=== PATIENT | male | born 1995 | race Caucasian/White ===

== ENCOUNTER 2023-05-18 13:03 | Outpatient (AMB) | payer OTHER, SELFPAY ==
[2023-05-18 13:12] VITALS: BP 110/78; PULSE 73; O2SAT 98; BMI 21.0
--- NOTE | 2023-05-18 13:12 | A.OFFPC_ITS ---
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 Past medical history significant for asthma in childhood. Patient states not required an inhaler in years. Patient states anytime he eats anything he has to run to bathroom with soft stools 1-2x daily. with occasional abdominal cramping. Denies abdominal pain Denies blood in stool, nausea, vomiting and constipation. Patient denies any chest pain, palpitations, shortness of breath and syncope. Eye exam: Patient has not had recent exam, recommended to get exam every couple of years. [facility] Medical History (Updated 05/18/23 @ 13:41 by PAULINE John) Asthma Family History (Updated 05/18/23 @ 13:32 by PAULINE John) Mother No problems noted. Father Diabetes Hypertension Social History (Updated 05/18/23 @ 13:33 by PAULINE John) Household Members: Family Housing: House Alcohol intake: never Patient Tobacco Use Status: Never used Tobacco e-Cigarette/Vaping Use: Never Used service: No Current occupational status: employed Current occupational exposures/hazards: No Cognitive needs: No Hearing needs: No Vision needs: No Questionnaire PHQ-9 Over the last 2 weeks, how often have you been bothered by any of the following problems? 1. Little interest or pleasure in doing things: not at all 2. Feeling down, depressed, or hopeless: not at all 3. Trouble falling or staying asleep, or sleeping too much: not at all 4. Feeling tired or having little energy: not at all 5. Poor appetite or overeating: not at all 6. Feeling bad about yourself - or that you are a failure or have let yourself or your family down: not at all 7. Trouble concentrating on things, such as reading the newspaper or watching television: not at all 8. Moving or speaking so slowly that other people could have noticed. Or the opposite - being so fidgety or restless that you have been moving around a lot more than usual: not at all 9. Thoughts that you would be better off or of hurting yourself in some way: not at all Total score: 0 Depression Screening Interpretation: Negative 70378 - PHQ-9 Billing: Yes Source: Developed by Drs. Hank Fountain, Kimberly Nunez, Alec soliman nd colleagues, with an educational marimar from [employer]. Thrive Questionnaire Date Thrive assessed: 05/18/23 I am a: Patient What is your living situation today?: I have a steady place to live Within the past 12 months, did the food you bought not last and you didn't have the money to get more?: Never true Within the past 12 months, did you worry whether your food would run out before you got money to buy more?: Never true Do you have trouble paying for medicines?: No Do you have trouble getting transportation to medical appointments?: No Do you have trouble paying your heating and electricity bill?: No Do you have trouble taking care of your child, family member or friend?: No Do you have trouble with day-to-day activities such as bathing, preparing meals, shopping, managing finances, etc.?: No Are you currently unemployed and looking for a job?: No Are you interested in more education?: No Please select the resources that you would like help with: None Currently or been in a relationship where the following occur: no concerns reported AUDIT C Alcohol Use Questionnaire (AUDIT-C) 1. How often do you have a drink containing alcohol?: Never 3. How often do you have six or more drinks on one occasion?: Never Total Score: 0 RAY-7 AMB Questionnaire RAY-7 Date RAY - 7 assessed: 05/18/23 Feeling nervous, anxious, or on edge: 0 = Not at all Not being able to stop or control worryin = Not at all Worrying too much about different things: 0 = Not at all Trouble relaxin = Not at all Being so restless that it is hard to sit still: 0 = Not at all Becoming easily annoyed or irritable: 0 = Not at all Feeling afraid as if something awful might happen: 0 = Not at all Total RAY-7 score (0-4 normal; 5-9 mild; 10-14 moderate; 15-21 severe): 0 Source: Developed by Drs. Hank Fountain, Kimberly Nunez, Alec Braun and colleagues, with an educational marimar from [employer]. RAY-7 Assessment Billing RAY-7 Assessment Tool: RAY-7 Assessment 95148 Review of Systems Const Denies chills, Denies fatigue, Denies fever(s) and Denies poor appetite Eyes Denies no additional complaints ENT Reports Normal hearing present Card Denies chest pain, Denies syncope, Denies rapid heart rate and Denies dyspnea Resp Denies cough and Denies dyspnea GI Denies change in stool character, Denies constipation, Denies diarrhea, Denies nausea and Denies vomiting Denies dysuria, Denies urinary frequency and Denies urinary urgency Neuro Reports Normal hearing present, Denies confusion and Denies syncope Psych Denies confusion Endo Denies fatigue Physical exam (Primary Care) Vital Signs: Last Vital Signs Pulse 73 05/18/23 13:12 BP 110/78 05/18/23 13:12 Pulse Ox 98 05/18/23 13:12 Oxygen Delivery Method Room Air 05/18/23 13:12 BMI result Body Mass Index 21.0 Tobacco/Smoking Status: Tobacco use Status Tobacco use date assessed 05/18/23 05/18/23 13:17 Patient Tobacco Use Status Never used Tobacco 05/18/23 13:33 e-Cigarette/Vaping Use Never Used 05/18/23 13:33 PHQ-9: PHQ-9 Score PHQ-9: Total score 0 05/18/23 13:36 Depression Screening Interpretation: Negative Thrive Assessment: Date of Thrive Assessment Date Thrive assessed 05/18/23 05/18/23 13:17 Currently or been in a relationship where the following occur: no concerns reported Const General: No confusion Orientation/consciousness: No confusion HENMT Head: Yes normocephalic and Yes atraumatic Ears: external ears normal and TM's normal bilaterally General nose exam: Normal external nose present and Normal nasal mucous membranes and turbinates present Face and sinus: Yes normal facial exam and Yes sinuses nontender Mouth: moist mucous membranes Throat: Yes tonsils normal Eyes Conjunctivae: conjunctivae normal Sclerae: sclerae normal Pupils: Equal, round and reactive pupils present and Pupils normal by confrontation EOM: EOMs intact bilaterally Direct Ophthalmoscopy: normal light reflex Neck Neck: Yes no lymphadenopathy and Yes supple Thyroid: Thyroid normal Chest Chest palpation & inspection: normal inspection of the chest Resp Effort & Inspection: normal respiratory effort Auscultation: clear to auscultation bilaterally, no crackles, no rhonchi and no wheezes Cardio Rate: regular rate Rhythm: regular rhythm Peripheral pulses: radial pulses present and dorsalis pedis present GI Inspection: Yes normal to inspection Palpation (GI): Soft to palpation, nontender and No hepatosplenomegaly present Auscultation: normoactive bowel sounds Skin General skin exam: no rashes or lesions noted Neuro General: No confusion Cranial nerves: Yes Equal, round and reactive pupils present and Yes Normal hearing present Cognition (Neuro): normal cognition Gait exam (Neuro): Normal gait present Motor exam (neuro): 5/5 motor strength present throughout Deep tendon reflexes (DTR's): Right brachioradialis reflex intensity grade: 2+, Left brachioradialis reflex intensity grade: 2+, Right patellar reflex intensity grade: 2+ and Left patellar reflex intensity grade: 2+ Extrem General: No edema Assessment and Plan Assessment & Plan (1) IBS (irritable bowel syndrome): Code(s): K58.9 - Irritable bowel syndrome without diarrhea Plan: Referral entered to GI for likely IBS. (2) Physical exam, annual: Code(s): Z00.00 - Encounter for general adult medical examination without abnormal findings Plan: Follow up in 1 year. Plan Follow up in 1 year or sooner if needed. Orders: Orders Comprehensive Met. Panel Today Z13.1 - Encounter for screening for diabetes mellitus TSH reflex Free T4 Today Z13.29 - Encounter for screening for other suspected endocrine disorder Cholesterol Today Z13.220 - Encounter for screening for lipoid disorders Complete Blood Count Auto Diff Today Z13.0 - Encounter for screening for diseases of the blood and blood-forming organs and certain disorders involving the immune mechanism Referrals Gastroenterology Referral K58.9 - Irritable bowel syndrome without diarrhea Coding Level of Care Code New Pt Prev Care 18-39yr(69546 Diagnoses IBS (irritable bowel syndrome) K58.9 Physical exam, annual Z00.00 Additional Codes RAY-7 Assessment Billing - RAY-7 Assessment Tool: RAY-7 Assessment 60897 ([id number])
== END 2023-05-18 13:45 | disposition home or self-care (01) ==
PROVIDERS: PCP Internal Medicine; Visit Provider Nurse Practitioner Family
DX: K58.9 Irritable bowel syndrome, unspecified (principal); Z00.00 Encounter for general adult medical examination without abnormal findings
CPT/HCPCS: 99385

== ENCOUNTER 2023-05-29 09:12 | Outpatient (REF) | payer OTHER, SELFPAY ==
[2023-05-29 10:23] LABS: Basophils Absolute Auto 0.1 X10*3/uL (0.0-0.2); Basophils Percent Auto 0.9 % (0-2); Eosinophils Absolute Auto 0.1 X10*3/uL (0.0-0.4); Eosinophils Percent Auto 1.7 % (0-4); Hematocrit 45.7 % (42.0-52.0); Hemoglobin 15.4 g/dl (14.0-18.0); Imm Gran Abs Auto 0.02 X10*3/uL (0.00-0.03); Imm Gran Pct Auto 0.3 % (0.0-0.4); MANUAL DIFF FLAG NO; Mean Corpuscular HGB Conc 33.7 g/dl (31.0-36.0); Mean Corpuscular Hemoglobin 29.4 pg (27.0-33.0); Mean Corpuscular Volume 87.2 fL (80.0-98.0); Mean Platelet Volume 9.9 fL (9.4-12.4); Monocytes Absolute Auto 0.5 X10*3/uL (0.1-1.2); Monocytes Percent Auto 8.3 % (2-11); Neutrophils Absolute Auto 3.2 x10*3/uL (2.0-8.3); Neutrophils Percent Auto 54.8 % (45-73); Platelet Count 240 X10*3/uL (160-400); Red Blood Count 5.24 X10*6/uL (4.60-5.80); Red Cell Distribution Width 11.8 % (11.0-16.0); White Blood Count 5.9 X10*3/uL (4.8-10.8)
[2023-05-29 11:13] LABS: Alanine Aminotransferase 14 U/L (0-40); Albumin Level 4.4 g/dL (3.5-5.0); Alkaline Phosphatase 83 U/L (39-117); Anion Gap 13 (12-20); Aspartate Amino Transferase 16 U/L (5-37); Bilirubin Total 0.7 mg/dL (0.0-1.0); Blood Urea Nitrogen 12 mg/dL (9-16); Calcium 9.3 mg/dL (8.4-10.2); Carbon Dioxide 26 mmol/L (22-29); Chloride 105 mmol/L (96-108); Cholesterol 168 mg/dL; Estimated Glomerular Filt Rate > 60; Glucose Random 90 mg/dL (60-115); Potassium 3.8 mmol/L (3.3-5.1); Sodium 140 mmol/L (135-145); Total Protein 7.1 g/dL (6.5-8.0)
[2023-05-29 11:28] LABS: TSH reflex Free T4 1.79 uIU/mL (0.32-4.0)
== END 2023-05-29 09:13 | disposition home or self-care (01) ==
LOC: HO.LAB 09:12
PROVIDERS: PCP Nurse Practitioner Family; Visit Provider Nurse Practitioner Family
DX: Z13.220 Encounter for screening for lipoid disorders (principal); Z13.0 Encounter for screening for diseases of the blood and blood-forming organs and certain disorders involving the immune mechanism; Z13.29 Encounter for screening for other suspected endocrine disorder
CPT/HCPCS: 36415; 80053; 82465; 84443; 85025

== ENCOUNTER 2023-07-17 07:56 | Outpatient (REF) | payer OTHER, SELFPAY ==
[2023-07-17 10:33] LABS: Lipase 20 U/L (8-78)
[2023-07-17 11:12] LABS: Folate 10.5 ng/mL (> or = 4.0); Vitamin B12 576 pg/mL (200-900)
[2023-07-19 14:09] LABS: Transglutaminase Ab IgG <1.0 U/mL; Transglutaminase IgA <1.0 U/mL
[2023-07-21 15:44] LABS: H Pylori Breath Test Negative (Negative)
[2023-07-21 16:24] LABS: Vitamin D 25-OH, D2 <4 ng/mL; Vitamin D 25-OH, D3 21 ng/mL; Vitamin D 25-OH, Total 21 ng/mL (30-100)
[2023-07-24 15:54] LABS: Pancreatic Elastase-1 >500 mcg/g
== END 2023-07-17 07:57 | disposition home or self-care (01) ==
LOC: HO.LAB 07:56
PROVIDERS: PCP Nurse Practitioner Family; Visit Provider Nurse Practitioner Family
DX: R10.13 Epigastric pain (principal); R10.9 Unspecified abdominal pain; E55.9 Vitamin D deficiency, unspecified; R19.7 Diarrhea, unspecified; K58.0 Irritable bowel syndrome with diarrhea
CPT/HCPCS: 36415; 82306; 82607; 82656; 82746; 83013; 83690; 86364

== ENCOUNTER 2023-07-17 07:56 | Outpatient (AMB) | payer OTHER, SELFPAY ==
--- NOTE | 2023-07-17 08:13 | A.OFFVIS_ITS ---
Intake Vital Signs 07/17/23 08:19 Height 5 ft 4 in Weight 122 lb BMI 20.9 BP 98/53 L Blood Pressure Location Lt brachial Position Sitting Pulse 70 Intake Visit Reasons: Irritable bowel syndrome Intake Note: Patient new consult for IBS. Patient cc: abdominal pain on and off, acid reflex come and go, poor appetite, and a lot of soft BM after eating. 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 Has not used inhaler for several years now. Patient was sent to us by his PCP for evaluation of his current symptoms. Patient reports to have frequent postprandial loose stools. Patient reports that no matter what he eats he will have loose stools and left upper quadrant discomfort. Patient reports that occasionally pain is in the left lower quadrant. Patient reports that frequently he has nausea, no vomiting. Patient denies melena, hematochezia, unintentional weight loss or ribbon like stools. Patient denies dyspepsia, dysphagia or odynophagia. Patient is not on any particular diet. He reports that no matter what he eats he will have a bowel movement. PCP ordered blood work the patient did in the beginning of May. Normal CBCs and normal liver enzymes. There was no leukocytosis. [facility] Medical History Asthma Family History Mother No problems noted. Father Diabetes Hypertension Social History Household Members: Family Housing: House Alcohol intake: never Patient Tobacco Use Status: Never used Tobacco e-Cigarette/Vaping Use: Never Used service: No Current occupational status: employed Current occupational exposures/hazards: No Cognitive needs: No Hearing needs: No Vision needs: No Review of Systems Const Denies weight gain and Denies weight loss ENT Reports no additional complaints, Denies dysphagia and Denies odynophagia Card Reports no additional complaints Resp Reports no additional complaints GI Reports abdominal pain (Epigastric), Denies belching, Denies melena, Denies bloating, Denies change in bowel habits, Denies dysphagia, Denies excessive flatus, Denies dyspepsia, Reports heartburn, Denies diarrhea, Reports loose stools, Reports nausea, Denies odynophagia and Denies vomiting Reports no additional complaints Musc Reports no additional complaints Neuro Reports no additional complaints Psych Reports no additional complaints Endo Reports no additional complaints Physical Exam Vital Signs: Last Vital Signs Pulse 70 07/17/23 08:19 BP 98/53 L 07/17/23 08:19 BMI result Body Mass Index 20.9 Const General: healthy appearing, no acute distress and well developed Nutritional Appearance: well nourished Orientation/consciousness: patient oriented x3 HEENT Head: Yes normal to inspection, Yes normocephalic and Yes atraumatic Face and sinus: Yes normal facial exam Mouth: Normal oral and palatal mucosa present Throat: Yes posterior oropharynx normal, Yes tonsils normal and Yes uvula midline Eyes General: appearance normal, both eyes and all related structures Neck Neck: Yes normal visual inspection, Yes full ROM and Yes trachea midline Thyroid: Thyroid normal Resp Effort & Inspection: normal respiratory effort, able to speak in complete se ntences, no tracheal deviation and symmetric chest movement Auscultation: clear to auscultation bilaterally Cardio Rate: regular rate Heart sounds: S1 normal heart sound present and S2 normal heart sound present GI Inspection: Yes normal to inspection and No distended Palpation (GI): Soft to palpation, not firm, nontender and No hepatosplenomegaly present Auscultation: normal bowel sounds General: Yes no CVA tenderness Back/Spine/Pelvis Back: no CVA tenderness Skin General skin exam: elasticity normal, turgor normal and dry skin Neuro General: patient oriented x3 Psych Appearance: grossly normal Mental Status: mental status grossly normal Speech and movement: Normal speech and movement present Assessment & Plan Assessment & Plan (1) IBS (irritable bowel syndrome): Code(s): K58.9 - Irritable bowel syndrome without diarrhea Qualifiers: Irritable bowel syndrome type: with diarrhea Qualified Code(s): K58.0 - Irritable bowel syndrome with diarrhea Plan: Postprandial loose stools. Discussed with patient avoiding dietary triggers. The FODMAP diet discussed with patient. Will send patient to check for pancreatic insufficiency, celiac, check vitamin B12, folate, vitamin-D level. (2) Postprandial epigastric pain: Code(s): R10.13 - Epigastric pain Plan: Postprandial epigastric pain with almost all the food that he eats. Will check for H pylori and treat empirically if positive. Will start patient on low-dose pantoprazole. Discussed with patient avoiding dietary triggers and late night snacking. Staying upright for minimal 3 hours after meals discussed with patient. I will see him in 5 weeks, sooner on as needed basis. Patient is agreeable to this plan and verbalizes understanding of instructions. He was given the opportunity to ask questions and all questions answered. Thank you for allowing me to participate in his care Orders: Orders Pancreatic Elastase-1 Today R10.9 - Unspecified abdominal pain Transglutaminase IgA Today R10.9 - Unspecified abdominal pain Lipase Today R10.9 - Unspecified abdominal pain Vitamin D 25-OH (D2 and D3) Today E55.9 - Vitamin D deficiency, unspecified Vitamin B12 and Folate Today R19.7 - Diarrhea, unspecified Transglutaminase Ab IgG Today R10.9 - Unspecified abdominal pain H Pylori Breath Test Today Medications: New pantoprazole 20 mg PO DAILY 30 tabs 1RF Coding Level of Care Code New Pt Level 3 (32270) Diagnoses Irritable bowel syndrome with diarrhea K58.0 Irritable bowel syndrome type: with diarrhea Postprandial epigastric pain R10.13 Time Spent (min) 40 Comment 30 minutes spent with patient and additional 10 minutes spent reviewing his records
[2023-07-17 08:19] VITALS: BP 98/53; PULSE 70; BMI 20.9
== END 2023-07-17 08:54 | disposition home or self-care (01) ==
PROVIDERS: PCP Family Medicine; Visit Provider Nurse Practitioner Family
DX: K58.0 Irritable bowel syndrome with diarrhea (principal); R10.13 Epigastric pain
CPT/HCPCS: 99203

== ENCOUNTER 2023-08-22 08:07 | Outpatient (AMB) | payer OTHER, SELFPAY ==
--- NOTE | 2023-08-22 08:13 | A.OFFVIS_ITS ---
Intake Vital Signs 08/22/23 08:14 Height 5 ft 4 in Weight 123 lb BMI 21.1 BP 104/55 L Blood Pressure Location Lt brachial Position Sitting Pulse 81 Intake Visit Reasons: 5 week follow up Intake Note: Patient 5 weeks follow up H pylori, lab and stool results. 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 Discussed with patient avoiding dietary triggers. The FODMAP diet discussed with patient. Will send patient to check for pancreatic insufficiency, celiac, check vitamin B12, folate, vitamin-D level. Postprandial epigastric pain Postprandial epigastric pain with almost all the food that he eats. Will check for H pylori and treat empirically if positive. Will start patient on low-dose pantoprazole. Discussed with patient avoiding dietary triggers and late night snacking. Staying upright for minimal 3 hours after meals discussed with patient. I will see him in 5 weeks, sooner on as needed basis. Patient is agree able to this plan and verbalizes understanding of instructions. He was given the opportunity to ask questions and all questions answered. ? Thank you for allowing me to participate in his care Plan Orders Orders Pancreatic Elastase-1 Today R10.9 Transglutaminase IgA Today R10.9 Lipase Today R10.9 Vitamin D 25-OH (D2 and D3) Today E55.9 Vitamin B12 and Folate Today R19.7 Transglutaminase Ab IgG Today R10.9 H Pylori Breath Test Today Medications New pantoprazole 20 mg PO DAILY 30 tabs 1RF TODAY'S VISIT: Patient is here today for follow-up and to discuss lab results. Patient reports that since he started taking pantoprazole he has been feeling better. His symptoms of acid reflux are suppressed for the most part it depending on what he eats he might have postprandial abdominal bloating and cramping. All the labs discussed with patient. Patient had negative H pylori, we ruled out pancreatic insufficiency. Patient had normal vitamin-D 3, vitamin B12 and folate levels. Patient reports that he is moving his bowels well without any issues. Denies any melena, hematochezia, unintentional weight loss or ribbon like stools. Patient denies any other GI concerning symptoms. [facility] Medical History Asthma Family History Mother No problems noted. Father Diabetes Hypertension Social History Household Members: Family Housing: House Alcohol intake: never Patient Tobacco Use Status: Never used Tobacco e-Cigarette/Vaping Use: Never Used service: No Current occupational status: employed Current occupational exposures/hazards: No Cognitive needs: No Hearing needs: No Vision needs: No Review of Systems Const Denies weight gain and Denies weight loss ENT Reports no additional complaints, Denies dysphagia and Denies odynophagia Card Reports no additional complaints Resp Reports no additional complaints GI Reports abdominal pain (abdominal cramping), Denies belching, Denies melena, Denies bloating, Denies change in bowel habits, Denies dysphagia, Denies exc essive flatus, Denies dyspepsia, Denies heartburn, Denies diarrhea, Denies loose stools, Denies nausea, Denies odynophagia and Denies vomiting Reports no additional complaints Musc Reports no additional complaints Neuro Reports no additional complaints Psych Reports no additional complaints Endo Reports no additional complaints Physical Exam Vital Signs: Last Vital Signs Pulse 81 08/22/23 08:14 BP 104/55 L 08/22/23 08:14 BMI result Body Mass Index 21.1 Const General: healthy appearing, no acute distress and well developed Nutritional Appearance: well nourished Orientation/consciousness: patient oriented x3 HEENT Head: Yes normal to inspection, Yes normocephalic and Yes atraumatic Face and sinus: Yes normal facial exam Mouth: Normal oral and palatal mucosa present Throat: Yes posterior oropharynx normal, Yes tonsils normal and Yes uvula midline Eyes General: appearance normal, both eyes and all related structures Neck Neck: Yes normal visual inspection, Yes full ROM and Yes trachea midline Thyroid: Thyroid normal Resp Effort & Inspection: normal respiratory effort, able to speak in complete sentences, no tracheal deviation and symmetric chest movement Auscultation: clear to auscultation bilaterally Cardio Rate: regular rate Heart sounds: S1 normal heart sound present and S2 normal heart sound present GI Inspection: Yes normal to inspection and No distended Palpation (GI): Soft to palpation, not firm, nontender and No hepatosplenomegaly present Auscultation: normal bowel sounds General: Yes no CVA tenderness Back/Spine/Pelvis Back: no CVA tenderness Skin General skin exam: elasticity normal, turgor normal and dry skin Neuro General: patient oriented x3 Psych Appearance: grossly normal Mental Status: mental status grossly normal Affect: normal affect Results Reviewed Results Reviewed: Laboratory Tests 07/17/23 07/17/23 07/17/23 08:45 09:24 09:40 Lipase 20 Vitamin B12 576 25-OH Vitamin D Total 21 L Folate 10.5 Stool Pancreat Elastase >500 Tiss Transglutamin IgG <1.0 Tiss Transglutamin IgA <1.0 H. pylori Breath Test Negative Assessment & Plan Assessment & Plan (1) IBS (irritable bowel syndrome): Code(s): K58.9 - Irritable bowel syndrome without diarrhea Qualifiers: Irritable bowel syndrome type: with diarrhea Qualified Code(s): K58.0 - Irritable bowel syndrome with diarrhea (2) Postprandial epigastric pain: Code(s): R10.13 - Epigastric pain Plan: Continue pantoprazole every morning half an hour before breakfast. Continue vitamin-D. Discussed with patient avoiding dietary triggers in late night snacking. Low FODMAP diet discussed with patient. Staying upright for minimum 3 hours after meals discussed with patient. I will see him in 6 months, sooner on a regular basis. Patient is agreeable to this plan and verbalizes understanding of instructions. He was given the opportunity to ask questions and all questions answered. Thank you for allowing me to participate in his care Medications: Refilled cholecalciferol (vitamin D3) 50 mcg PO DAILY 90 caps 3RF R79.89 - Other specified abnormal findings of blood chemistry pantoprazole 20 mg PO DAILY 90 tabs 3RF Coding Level of Care Code Est Pt Level 3 (12028) Diagnoses Irritable bowel syndrome with diarrhea K58.0 Irritable bowel syndrome type: with diarrhea Postprandial epigastric pain R10.13 Time Spent (min) 25 Comment 15 minute spent in patient and additional 10 minutes spent reviewing his records
[2023-08-22 08:14] VITALS: BP 104/55; PULSE 81; BMI 21.1
== END 2023-08-22 08:33 | disposition home or self-care (01) ==
PROVIDERS: PCP Family Medicine; Visit Provider Nurse Practitioner Family
DX: K58.0 Irritable bowel syndrome with diarrhea (principal); R10.13 Epigastric pain
CPT/HCPCS: 99213

== ENCOUNTER → 2023-08-22 08:07 | Outpatient (BNVA) | payer OTHER, SELFPAY | PROVIDERS: PCP Family Medicine; Visit Provider Nurse Practitioner Family | DX: K58.0 Irritable bowel syndrome with diarrhea (principal); R10.13 Epigastric pain | CPT/HCPCS: 99212 ==

== ENCOUNTER 2023-09-12 18:59 | Emergency (ER) | payer OTHER, SELFPAY ==
--- NOTE | ~2023-09-12 | CT_ITS ---
EXAMINATION: CT head/brain wo IV con CLINICAL INFORMATION: Reason for Exam Vertigo COMPARISON: None. TECHNIQUE: Contiguous axial imaging was performed from the skull base to vertex without intravenous contrast. Sagittal and coronal reformatted images were obtained. This CT examination was performed using dose optimization techniques as appropriate, variously including the following: * Automated exposure control * Adjustment of mA and/or kV according to patient size (this includes techniques or standardized protocols for targeted exams where dose is matched to indication/reason for exam; i.e. extremities or head) Use of iterative reconstruction technique DLP: 728 mGy-cm FINDINGS: No acute osseous or soft tissue abnormality. The mastoid air cells and visualized portions of the paranasal sinuses are well aerated. There is no evidence of acute intracranial hemorrhage or territorial infarction. No abnormal mass effect or midline shift is seen. Cage to white matter differentiation is well preserved. No extra-axial fluid collections are identified. No hydrocephalus. No significant volume loss. There is no abnormal attenuation within the brain parenchyma. CT/CT head/brain wo IV con IMPRESSION: No acute intracranial abnormality including hemorrhage, mass effect, hydrocephalus, or acute territorial edematous infarction.
--- NOTE | 2023-09-12 19:21 | ED_ITS ---
HPI - General Adult General Stated complaint: dizziness, nausea, vomiting Related Data Previous Rx's Medication Instructions Recorded cholecalciferol (vitamin D3) 50 50 mcg PO DAILY #90 caps 08/22/23 mcg (2,000 unit) capsule pantoprazole 20 mg tablet,delayed 20 mg PO DAILY #90 tabs 08/22/23 release Allergies Allergy/AdvReac Type Severity Reaction Status Date / Time No Known Allergies Allergy Verified 08/22/23 08:13 [No Known Allergies*] [facility] Past Medical History Medical History Asthma Family History Family History Mother No problems noted. Father Diabetes Hypertension Social History Household Members: Family Housing: House Alcohol intake: never Patient Tobacco Use Status: Never used Tobacco e-Cigarette/Vaping Use: Never Used service: No Current occupational status: employed Current occupational exposures/hazards: No Cognitive needs: No Hearing needs: No Vision needs: No Course Course Course Narrative: This is an RME: Additional HPI, ROS, PE not included below will be deferred to primary provider. This is a 28-year-old male, with a history of irritable bowel syndrome, presenting to the emergency department for evaluation of lightheadedness, nausea, and dizziness since today. +Chills, +nausea, +vomiting, no fevers. Endorsing some abdominal pain. Had left over pizza for lunch this afternoon. Pale. Abdomen is soft. No neurologic focal deficits on exam. Plan: Labs, urine, COVID flu RSV, urine Discharge Plan Discharge Prescriptions: No Action cholecalciferol (vitamin D3) 50 mcg (2,000 unit) capsule 50 mcg PO DAILY Qty: 90 3RF pantoprazole 20 mg tablet,delayed release (DR/EC) 20 mg PO DAILY Qty: 90 3RF
[2023-09-12 19:24] VITALS: BP 120/74; PULSE 101; RESP 18; TEMP 36.2; O2SAT 98; BMI 21.1
[2023-09-12 20:44] LABS: MANUAL DIFF FLAG NO
[2023-09-12 20:46] LABS: Basophils Absolute Auto 0.1 X10*3/uL (0.0-0.2); Basophils Percent Auto 0.5 % (0-2); Eosinophils Absolute Auto 0.1 X10*3/uL (0.0-0.4); Eosinophils Percent Auto 0.4 % (0-4); Hematocrit 47.2 % (42.0-52.0); Imm Gran Abs Auto 0.08 X10*3/uL (0.00-0.03); Imm Gran Pct Auto 0.5 % (0.0-0.4); Lymphocytes Absolute Auto 1.5 X10*3/uL (1.2-4.9); Mean Corpuscular HGB Conc 33.9 g/dl (31.0-36.0); Mean Corpuscular Hemoglobin 28.4 pg (27.0-33.0); Mean Corpuscular Volume 83.7 fL (80.0-98.0); Mean Platelet Volume 9.4 fL (9.4-12.4); Monocytes Absolute Auto 0.9 X10*3/uL (0.1-1.2); Monocytes Percent Auto 5.8 % (2-11); Neutrophils Absolute Auto 12.5 x10*3/uL (2.0-8.3); Neutrophils Percent Auto 82.8 % (45-73); Platelet Count 272 X10*3/uL (160-400); Red Blood Count 5.64 X10*6/uL (4.60-5.80); Red Cell Distribution Width 11.9 % (11.0-16.0); White Blood Count 15.1 X10*3/uL (4.8-10.8)
[2023-09-12 20:52] VITALS: BP 137/50; PULSE 78; O2SAT 100
[2023-09-12 20:59] LABS: Alanine Aminotransferase 31 U/L (0-40); Albumin Level 4.7 g/dL (3.5-5.0); Alkaline Phosphatase 94 U/L (39-117); Anion Gap 11 (12-20); Aspartate Amino Transferase 19 U/L (5-37); Bilirubin Direct 0.2 mg/dL (0.0-0.5); Bilirubin Total 0.4 mg/dL (0.0-1.0); Blood Urea Nitrogen 9 mg/dL (9-16); Carbon Dioxide 29 mmol/L (22-29); Chloride 104 mmol/L (96-108); Creatinine Clr Calc Pharmacy 115.2; Estimated Glomerular Filt Rate > 60; Glucose Random 118 mg/dL (60-115); Lipase 21 U/L (8-78); Potassium 4.8 mmol/L (3.3-5.1); Sodium 139 mmol/L (135-145); Total Protein 7.7 g/dL (6.5-8.0)
[2023-09-12 21:22] LABS: Influenza A PCR NEGATIVE (Negative); Influenza B PCR NEGATIVE (Negative); Resp Syncy Virus RNA Qual PCR NEGATIVE (Negative); SARS COV2 PCR INHOUSE NEGATIVE (Negative)
[2023-09-12 22:54] LABS: Appearance Urine Turbid; Color Urine Yellow; Glucose Urine UA Negative (Negative); Leukocyte Esterase Urine Negative (Negative); Nitrite Urine Negative (Negative); PH 8.5 (5.0-9.0); Specific Gravity - Urine 1.015 (1.005-1.025); Urine Blood Negative (Negative); Urine Ketones Negative (Negative); Urine Protein Negative (Neg-Trace)
[2023-09-12 23:33] VITALS: BP 109/62; PULSE 72; RESP 20; TEMP 36.6; O2SAT 98
--- NOTE | 2023-09-13 00:39 | ED.GENADULT ---
HPI - General Adult General Chief complaint: Abdominal Pain Stated complaint: dizziness, nausea, vomiting Time Seen by Provider: 09/12/23 23:28 History of Present Illness HPI narrative: Patient is a 28-year-old male presents today with having sudden onset of spinning sensation it is extreme it is worse with turning his head. Patient never had something similar in the past. No coughing or congestion or upper respiratory symptoms. No focal weakness. Symptom improved with sitting still. He is from home. Denies any recreational drug use. Related Data Previous Rx's Medication Instructions Recorded cholecalciferol (vitamin D3) 50 50 mcg PO DAILY #90 caps 08/22/23 mcg (2,000 unit) capsule pantoprazole 20 mg tablet,delayed 20 mg PO DAILY #90 tabs 08/22/23 release meclizine 25 mg chewable tablet 25 mg PO TID PRN dizziness #10 tabs 09/13/23 (Antivert) Allergies Allergy/AdvReac Type Severity Reaction Status Date / Time No Known Allergies Allergy Verified 08/22/23 08:13 [No Known Allergies*] Review of Systems Review of Systems: Positive spinning sensation positive generalized malaise Yes all other systems are reviewed and are negative [facility] Past Medical History Medical History Asthma Family History Family History Mother No problems noted. Father Diabetes Hypertension Social History Household Members: Family Housing: House Alcohol intake: never Patient Tobacco Use Status: Never used Tobacco e-Cigarette/Vaping Use: Never Used Advance Directives: No Advance Directives Information Provided: No service: No Current occupational status: employed Current occupational exposures/hazards: No Cognitive needs: No Hearing needs: No Vision needs: No Physical Exam ED Vital Signs: Vital Signs - 24 hr 09/12/23 19:24 09/12/23 20:52 09/12/23 23:33 Temperature 97.2 F 97.9 F Pulse Rate 101 H 78 72 Respiratory Rate 18 20 Blood Pressure 120/74 137/50 L 109/62 Pulse Oximetry 98 100 98 Oxygen Delivery Method Room Air Room Air Room Air BMI result Body Mass Index 21.1 Appearance: Alert. Oriented X3. No acute distress. Eyes: Pupils equal, round and reactive to light. ENT: Pharynx normal. Neck: Normal inspection. Neck supple. No lymph nodes noted. No crepitus CVS: Normal heart rate and rhythm. Pulses normal. Normal S1 and S2 Respiratory: No respiratory distress. Breath sounds normal. No Wheezing. No rales Abdomen: Soft and nontender. No rigidity. No distention. good BS x4 Skin: Skin warm and dry. Normal skin color. Normal skin turgor. Extremities: No lower extremity edema. Neurovascular intact to all extremities. No Lacerations. No Rash Neuro: Oriented X 3. No motor deficit. No sensory deficit. Moving all extermities. No slurred speech. Positive Alyssa Hallpike maneuver when turning patient's head to the right patient's symptoms reproduced NIH Stroke Scale Time: 00:41 Level of Consciousness: Alert Level of Consciousness Questions: Answers both questions correctly Level of Consciousness Commands: Performs both tasks correctly Best Gaze: Normal Visual: No visual loss Facial Palsy: Normal Motor Arm (Right): No drift Motor Arm (Left): No drift Motor Leg (Right): No drift Motor Leg (Left): No drift Limb Ataxia: Absent Sensory: Normal Best Language: No aphasia Dysarthia: Normal Extinction and Inattention: No abnormality Score: 0 Medications Administered Discontinued Medications Generic Name Dose Route Start Last Admin Trade Name Freq PRN Reason Stop Dose Admin Sodium Chloride 1,000 mls @ 999 mls/hr 09/13/23 00:45 09/13/23 01:19 Ns IV 09/13/23 01:45 999 mls/hr .Q1H1M CASSIE Administration Meclizine HCl 25 mg 09/13/23 00:38 09/13/23 01:19 Meclizine Hcl 25 Mg Tablet PO 09/13/23 00:39 25 mg ONCE ONE Administration Medical Decision Making Medical Decision Making [facility] Narrative: Patient well appearing no acute distress. Neurologically intact. Symptoms consistent with having peripheral vertigo. Very abrupt in onset reproduced with turning his head. Will give a dose of Antivert. IV fluids ordered. Patient's COVID test was negative. Flu RSV negative. Electrolytes unremarkable. CT scan of the head was grossly negative for any acute evidence of bleeding by my interpretation. I reviewed radiology's reading of the CT scan. Patient neurologically intact. Symptom improved after dose of Antivert. After dose of IV fluids. Will discharge patient home. Close follow-up on outpatient basis. Likely has peripheral vertigo. Differential Diagnosis Differential Diagnoses: The differential diagnosis associated with the presentation includes Peripheral vertigo, flu, RSV Admission/Observation Consideration of admission/observation: Escalation of care including admission/observation considered No need for admission as patient's symptoms improving Lab Data MDM Lab Attestation statement: I reviewed the patient's lab results. 09/12/23 20:38 09/12/23 20:38 Labs: Lab Results 09/12/23 09/12/23 Range/Units 20:38 22:45 WBC 15.1 H (4.8-10.8) X10*3/uL RBC 5.64 (4.60-5.80) X10*6/uL Hgb 16.0 (14.0-18.0) g/dl Hct 47.2 (42.0-52.0) % MCV 83.7 (80.0-98.0) fL MCH 28.4 (27.0-33.0) pg MCHC 33.9 (31.0-36.0) g/dl RDW 11.9 (11.0-16.0) % Plt Count 272 (160-400) X10*3/uL MPV 9.4 (9.4-12.4) fL Immature Gran % (Auto) 0.5 H (0.0-0.4) % Neut % (Auto) 82.8 H (45-73) % Lymph % (Auto) 10.0 L (20-40) % [place] % (Auto) 5.8 (2-11) % Eos % (Auto) 0.4 (0-4) % Baso % (Auto) 0.5 (0-2) % Lymph # (Auto) 1.5 (1.2-4.9) X10*3/uL [place] # (Auto) 0.9 (0.1-1.2) X10*3/uL Eos # (Auto) 0.1 (0.0-0.4) X10*3/uL Baso # (Auto) 0.1 (0.0-0.2) X10*3/uL Abs Immat Gran (auto) 0.08 H (0.00-0.03) X10*3/uL Absolute Neuts (auto) 12.5 H (2.0-8.3) x10*3/uL Absolute Nucleated RBC 0.000 (0.0-0.012) X10*3/uL Nucleated RBC % (auto) 0.0 (0.0-0.2) /100WBC Sodium 139 (135-145) mmol/L Potassium 4.8 D (3.3-5.1) mmol/L Chloride 104 (96-108) mmol/L Carbon Dioxide 29 (22-29) mmol/L Anion Gap 11 L (12-20) BUN 9 (9-16) mg/dL Creatinine 0.76 (0.5-1.4) mg/dL Estim Creat Clear Calc 115.2 Estimated GFR > 60 Random Glucose 118 H (60-115) mg/dL Calcium 10.0 D (8.4-10.2) mg/dL Total Bilirubin 0.4 (0.0-1.0) mg/dL Direct Bilirubin 0.2 (0.0-0.5) mg/dL AST 19 (5-37) U/L ALT 31 (0-40) U/L Alkaline Phosphatase 94 (39-117) U/L Total Protein 7.7 (6.5-8.0) g/dL Albumin 4.7 (3.5-5.0) g/dL Lipase 21 (8-78) U/L Urine Color Yellow Urine Appearance Turbid Urine pH 8.5 (5.0-9.0) Ur Specific [place] 1.015 (1.005-1.025) Urine Protein Negative (Neg-Trace) mg/dL Urine Glucose (UA) Negative (Negative) mg/dL Urine Ketones Negative (Negative) mg/dL Urine Blood Negative (Negative) Urine Nitrite Negative (Negative) Ur Leukocyte Esterase Negative (Negative) Influenza Type A (PCR) NEGATIVE (Negative) Influenza Type B (PCR) NEGATIVE (Negative) RSV RNA Qual (PCR) NEGATIVE (Negative) SARS-CoV-2 RNA (RT-PCR) NEGATIVE (Negative) Independent Interpretation I performed an independent interpretation of an: CT Scan (CT head grossly negative for any acute evidence of bleeding) Radiology Impression Discussion of test interpretation with radiology: I have reviewed the radiologist's reading. Prescription Management I considered prescription management with: Pain Medication, Antiviral and Antibiotic Discharge Plan Discharge Clinical Impression: Vertigo Patient Disposition: Home, Self-Care Instructions: Vertigo (DC) Prescriptions: [facility]Antivert] 25 mg tablet,chewable 25 mg PO TID PRN (Reason: dizziness) Qty: 10 0RF No Action cholecalciferol (vitamin D3) 50 mcg (2,000 unit) capsule 50 mcg PO DAILY Qty: 90 3RF pantoprazole 20 mg tablet,delayed release (DR/EC) 20 mg PO DAILY Qty: 90 3RF Referrals: Physician,Unknown J [Primary Care Provider] - 09/15/23
[2023-09-13] MEDS: Meclizine HCl 25 MG TABLET PO (01:19)
[2023-09-13] MEDS: 0.9 % Sodium Chloride 1,000 ML 999 ML IV (01:19)
[2023-09-13 02:00] VITALS: BP 106/59; PULSE 68; RESP 18; TEMP 36.7; O2SAT 98
--- NOTE | 2023-09-13 02:00 | PC.NURSE ---
Iv placed, pt medicated per mar, pt resting in bed with no sign of distress.
--- NOTE | 2023-09-13 02:55 | PC.NURSE ---
pt a&o, sleeping. no longer vomiting.
--- NOTE | 2023-09-13 04:11 | PC.NURSE ---
pt sleeping in bed, no n/v reviewed discharge instruction with pt, pt verbalized understanding.
== END 2023-09-13 04:17 | disposition home or self-care (01) ==
PROVIDERS: Physician Assistant Medical; Emergency Provider Emergency Medicine Emergency Medical Services
DX: R11.2 Nausea with vomiting, unspecified (principal); R42 Dizziness and giddiness; Z20.822 Contact with and (suspected) exposure to COVID-19; Z20.828 Contact with and (suspected) exposure to other viral communicable diseases; Z79.899 Other long term (current) drug therapy
CPT/HCPCS: 0241U; 36415; 70450; 80048; 80076; 81003; 83690; 85025; 96360; 96361; 99283; 99284

== ENCOUNTER 2024-02-20 07:54 | Outpatient (AMB) | payer OTHER, SELFPAY ==
--- NOTE | 2024-02-20 08:06 | A.OFFVIS_ITS ---
Vital Signs 02/20/24 08:08 Height 5 ft 4 in Weight 131 lb BMI 22.5 BP 106/54 L Blood Pressure Location Lt brachial Position Sitting Intake Visit Reasons: 6 month follow up IBS Intake Note: Patient follow up for IBS Patient cc: GERD on and off, abdominal pain come and go, and some diarrhea on and off. 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 Continue vitamin-D. Discussed with patient avoiding dietary triggers in late night snacking. Low FODMAP diet discussed with patient. Staying upright for minimum 3 hours after meals discussed with patient. I will see him in 6 months, sooner on a regular basis. Patient is agreeable to this plan and verbalizes understanding of instructions. He was given the opportunity to ask questions and all questions answered. ? Thank you for allowing me to participate in his care Plan Medications Refilled cholecalciferol (vitamin D3) 50 mcg PO DAILY 90 caps 3RF R79.89 pantoprazole 20 mg PO DAILY 90 tabs 3RF TODAY'S VISIT: Patient is here today for follow-up. Patient reports that he is taking ramos toprazole every other day as he feels like it is making him constipated. Patient continues to have epigastric burning postprandially. Reports acid reflux and sometimes dyspepsia without dysphagia or odynophagia. Patient is not eating anything spicy. Avoids coffee. Occasionally will eat late at night. Patient does admit to have postprandial loose stools and sometimes loose stools even before he eats. On and frequent stools and then constipation. Patient is not on any particular diet. Tries to avoid fast food. Denies any nausea or vomiting. Reports left upper and left lower quadrant discomfort/cramping. Patient reports to be feeling bloated and gassy at times. Denies melena, hematochezia, unintentional weight loss or ribbon like stools. [facility] Medical History Asthma Family History Mother No problems noted. Father Diabetes Hypertension Social History Household Members: Family Housing: House Alcohol intake: never Patient Tobacco Use Status: Never used Tobacco e-Cigarette/Vaping Use: Never Used service: No Current occupational status: employed Current occupational exposures/hazards: No Cognitive needs: No Hearing needs: No Vision needs: No Review of Systems Const Denies weight gain and Denies weight loss ENT Reports no additional complaints, Denies dysphagia and Denies odynophagia Card Reports no additional complaints Resp Reports no additional complaints GI Reports abdominal pain (Epigastric, LLQ, LUQ), Denies belching, Denies melena, Reports bloating, Reports constipation, Denies dysphagia, Denies excessive flatus, Reports dyspepsia, Reports heartburn, Denies diarrhea, Reports loose stools, Denies nausea, Denies odynophagia and Denies vomiting Reports no additional complaints Musc Reports no additional complaints Neuro Reports no additional complaints Psych Reports no additional complaints Endo Reports no additional complaints Physical Exam Vital Signs: Last Vital Signs BP 106/54 L 02/20/24 08:08 BMI result Body Mass Index 22.5 Const General: healthy appearing, no acute distress and well developed Nutritional Appearance: well nourished Orientation/consciousness: patient oriented x3 Resp Effort & Inspection: normal respiratory effort, able to speak in complete sentences, no tracheal deviation and symmetric chest movement Auscultation: clear to auscultation bilaterally Cardio Rate: regular rate GI Inspection: Yes normal to inspection and No distended Palpation (GI): Soft to palpation, not firm, nontender and No hepatosplenomegaly present Auscultation: normal bowel sounds General: Yes no CVA tenderness Back/Spine/Pelvis Back: no CVA tenderness Skin General skin exam: elasticity normal, turgor normal and dry skin Neuro General: patient oriented x3 Psych Appearance: grossly normal Mental Status: mental status grossly normal Assessment & Plan Assessment & Plan (1) IBS (irritable bowel syndrome): Code(s): K58.9 - Irritable bowel syndrome without diarrhea Category: Medical Qualifiers: Irritable bowel syndrome type: with diarrhea Qualified Code(s): K58.0 - Irritable bowel syndrome with diarrhea (2) Postprandial epigastric pain: Code(s): R10.13 - Epigastric pain (3) GERD (gastroesophageal reflux disease): Code(s): K21.9 - Gastro-esophageal reflux disease without esophagitis Qualifiers: Esophagitis presence: esophagitis presence not specified Qualified Code(s): K21.9 - Gastro-esophageal reflux disease without esophagitis (4) Postprandial abdominal bloating: Code(s): R14.0 - Abdominal distension (gaseous) (5) Postprandial diarrhea: Code(s): K52.9 - Noninfective gastroenteritis and colitis, unspecified Plan Patient will take Nexium. Pantoprazole was not helpful when he was taking it. Avoid dietary triggers and late night snacking. Staying upright for minimum 3 hours after meals discussed with patient. Low FODMAP diet discussed with patient. List of food recommended as well as list of food to avoid given to patient. Patient will try taking Citrucel daily. Increase fluid intake and activity to promote better bowel motility. I will see patient in 2 months, sooner on as needed basis. He is agreeable to this plan and verbalizes understanding of instructions. He was given the opportunity to ask questions and all questions answered. Thank you for allowing me to participate in his care Medications: New methylcellulose (laxative) (Citrucel) take it with full glass of water 500 mg PO DAILY 30 tabs 2RF K59.00 - Constipation, unspecified esomeprazole magnesium (Nexium) 40 mg PO DAILY 30 caps 5RF K21.9 - Gastro- esophageal reflux disease without esophagitis Discontinued pantoprazole Discontinued Reason: Doctor's Order 20 mg PO DAILY 90 tabs 3RF Coding Level of Care Code Est Pt Level 3 (78677) Diagnoses Irritable bowel syndrome with diarrhea K58.0 Irritable bowel syndrome type: with diarrhea Postprandial epigastric pain R10.13 Gastroesophageal reflux disease, unspecified whether esophagitis present K21.9 Esophagitis presence: esophagitis presence not specified Postprandial abdominal bloating R14.0 Postprandial diarrhea K52.9 Time Spent (min) 30
[2024-02-20 08:08] VITALS: BP 106/54; BMI 22.5
== END 2024-02-20 08:28 | disposition home or self-care (01) ==
PROVIDERS: PCP Family Medicine; Visit Provider Nurse Practitioner Family
DX: K58.0 Irritable bowel syndrome with diarrhea (principal); R10.13 Epigastric pain; K21.9 Gastro-esophageal reflux disease without esophagitis; R14.0 Abdominal distension (gaseous)
CPT/HCPCS: 99213

== ENCOUNTER → 2024-02-20 07:54 | Outpatient (BNVA) | payer OTHER, SELFPAY | PROVIDERS: PCP Family Medicine; Visit Provider Nurse Practitioner Family | DX: K58.0 Irritable bowel syndrome with diarrhea (principal); K21.9 Gastro-esophageal reflux disease without esophagitis; K52.9 Noninfective gastroenteritis and colitis, unspecified; R10.13 Epigastric pain; R14.0 Abdominal distension (gaseous) | CPT/HCPCS: 99212 ==

== ENCOUNTER 2024-04-09 08:45 | Outpatient (AMB) | payer OTHER, SELFPAY ==
--- NOTE | 2024-04-09 08:47 | A.OFFVIS_ITS ---
Vital Signs 04/09/24 08:52 Height 5 ft 4 in Weight 134 lb 0.657 oz BMI 23.0 BP 118/60 Blood Pressure Location Rt brachial Position Sitting Pulse 80 Pulse Source Pulse Oximeter Pulse Oximetry (%) 98 Oxygen Delivery Method Room Air Intake Visit Reasons: 2 month follow up Intake Note: Michele presents in office today for a scheduled 2 mos FUV. CC; Pt was rx'd nexium and citrucel at their last visit. Pt reports that he never received the citrucel because the pharmacy did not have any in stock. Pt reports that the pharmacy did try to contact the office but did not get any response. Pt has been taking the nexium without any complications. Billet Checker Required: No Allergies No Known Allergies [No Known Allergies*] Allergy (Verified 04/09/24 08:52) HPI HPI 2 month follow up: Details: LAST VISIT IBS (irritable bowel syndrome) Postprandial epigastric pain GERD (gastroesophageal reflux disease) Postprandial abdominal bloating Postprandial diarrhea Plan Patient will take Nexium. Pantoprazole was not helpful when he was taking it. Avoid dietary triggers and late night snacking. Staying upright for minimum 3 hours after meals discussed with patient. Low FODMAP diet discussed with tad justice. List of food recommended as well as list of food to avoid given to patient. Patient will try taking Citrucel daily. Increase fluid intake and activity to promote better bowel motility. I will see patient in 2 months, sooner on as needed basis. He is agreeable to this plan and verbalizes understanding of instructions. He was given the opportunity to ask questions and all questions answered. ? Thank you for allowing me to participate in his care Medications New methylcellulose (laxative) (Citrucel) take it with full glass of water 500 mg PO DAILY 30 tabs 2RF K59.00 esomeprazole magnesium (Nexium) 40 mg PO DAILY 30 caps 5RF K21.9 Discontinued pantoprazole Discontinued Reason: Doctor's Order 20 mg PO DAILY 90 tabs 3RF TODAY'S VISIT Patient is here today for follow-up. Patient reports that he has been doing well since we change him to Nexium. Patient reports that his symptoms are under good control. Patient also reports that he changed his diet, eating healthier. Not eating spicy food. Mostly home cooked meals. Patient also reports that his bowels have normalized. No longer has postprandial loose stools. Patient denies dyspepsia, dysphagia or odynophagia. Patient denies any melena, hem atochezia. Patient reports to have good appetite. Was on vacation happen weeks ago and had no issues then when he was eating out it [facility] Medical History Asthma Family History Mother No problems noted. Father Diabetes Hypertension Social History Household Members: Family Housing: House Alcohol intake: never Patient Tobacco Use Status: Never used Tobacco e-Cigarette/Vaping Use: Never Used service: No Current occupational status: employed Current occupational exposures/hazards: No Cognitive needs: No Hearing needs: No Vision needs: No Review of Systems Const Denies weight gain and Denies weight loss ENT Reports no additional complaints, Denies dysphagia and Denies odynophagia Card Reports no additional complaints Resp Reports no additional complaints GI Denies abdominal pain, Denies belching, Denies melena, Denies bloating, Denies change in bowel habits, Denies dysphagia, Denies excessive flatus, Denies dyspepsia, Denies heartburn, Denies diarrhea, Denies loose stools, Denies nausea, Denies odynophagia and Denies vomiting Reports no additional complaints Musc Reports no additional complaints Neuro Reports no additional complaints Psych Reports no additional complaints Endo Reports no additional complaints Physical Exam Vital Signs: Last Vital Signs Pulse 80 04/09/24 08:52 BP 118/60 04/09/24 08:52 Pulse Ox 98 04/09/24 08:52 Oxygen Delivery Method Room Air 04/09/24 08:52 BMI result Body Mass Index 23.0 Const General: healthy appearing, no acute distress and well developed Nutritional Appearance: well nourished Orientation/consciousness: patient oriented x3 Resp Effort & Inspection: normal respiratory effort, able to speak in complete sentences, no tracheal deviation and symmetric chest movement Auscultation: clear to auscultation bilaterally Cardio Rate: regular rate GI Inspection: Yes normal to inspection and No distended Palpation (GI): Soft to palpation, not firm, nontender and No hepatosplenomegaly present Auscultation: normal bowel sounds General: Yes no CVA tenderness Back/Spine/Pelvis Back: no CVA tenderness Skin General skin exam: elasticity normal, turgor normal and dry skin Neuro General: patient oriented x3 Psych Appearance: grossly normal Mental Status: mental status grossly normal Assessment & Plan Assessment & Plan (1) IBS (irritable bowel syndrome): Code(s): K58.9 - Irritable bowel syndrome without diarrhea Category: Medical Qualifiers: Irritable bowel syndrome type: with diarrhea Qualified Code(s): K58.0 - Irritable bowel syndrome with diarrhea (2) Postprandial epigastric pain: Code(s): R10.13 - Epigastric pain (3) GERD (gastroesophageal reflux disease): Code(s): K21.9 - Gastro-esophageal reflux disease without esophagitis Qualifiers: Esophagitis presence: esophagitis presence not specified Qualified Code(s): K21.9 - Gastro-esophageal reflux disease without esophagitis Plan Continue Nexium for another 2 weeks and try to wean off every other day. Continue avoiding dietary triggers and late night snacking. Staying upright for minimum 3 hours after meals discussed with patient. Patient will follow-up in 6 months, sooner on as needed basis. He is agreeable to this plan and verbalizes understanding of instructions. He was given the opportunity to ask questions and all questions answered. Thank you for allowing me to participate in his care Coding Level of Care Code Est Pt Level 3 (90487) Diagnoses Irritable bowel syndrome with diarrhea K58.0 Irritable bowel syndrome type: with diarrhea Postprandial epigastric pain R10.13 Gastroesophageal reflux disease, unspecified whether esophagitis present K21.9 Esophagitis presence: esophagitis presence not specified Time Spent (min) 25 Comment 15 minutes spent with patient and additional 10 minutes spent reviewing his records
[2024-04-09 08:52] VITALS: BP 118/60; PULSE 80; O2SAT 98; BMI 23.0
== END 2024-04-09 09:06 | disposition home or self-care (01) ==
PROVIDERS: PCP Nurse Practitioner Family; Visit Provider Nurse Practitioner Family
DX: K58.0 Irritable bowel syndrome with diarrhea (principal); R10.13 Epigastric pain; K21.9 Gastro-esophageal reflux disease without esophagitis
CPT/HCPCS: 99213

== ENCOUNTER → 2024-04-09 08:45 | Outpatient (BNVA) | payer OTHER, SELFPAY | PROVIDERS: PCP Nurse Practitioner Family; Visit Provider Nurse Practitioner Family | DX: K58.0 Irritable bowel syndrome with diarrhea (principal); R10.13 Epigastric pain; K21.9 Gastro-esophageal reflux disease without esophagitis | CPT/HCPCS: 99212 ==

== ENCOUNTER 2024-05-20 13:50 | Outpatient (AMB) | payer OTHER, SELFPAY ==
[2024-05-20 13:58] VITALS: BP 106/78; PULSE 80; O2SAT 100; BMI 23.5
--- NOTE | 2024-05-20 13:58 | MHC.PC.OV ---
Vital Signs 05/20/24 13:58 Height 5 ft 4 in Weight 137 lb 0.3 oz BMI 23.5 BP 106/78 Blood Pressure Location Lt brachial Position Sitting Pulse 80 Pulse Source Pulse Oximeter Pulse Oximetry (%) 100 Oxygen Delivery Method Room Air Intake Visit Reasons: PHYSICAL Intake Note: Patient is here today for a physical. [place] Required: No Allergies No Known Allergies [No Known Allergies*] Allergy (Verified 05/20/24 14:14) Medication List - Last Reconciled 05/20/24 by Gena Muller PA-C cholecalciferol (vitamin D3) 50 mcg PO DAILY esomeprazole magnesium (Nexium) 40 mg PO DAILY Tobacco use date assessed: 05/20/24 Dental Screening Dental Screen Date: 05/20/24 Did you have a dental visit in the last 12 months?: No Did you have a dental problem in the last 6 months where you did not have access to dental care?: No Was dental information given to patient?: Patient has dentist HPI PHYSICAL HPI Details 28-year-old male with past medical history irritable bowel syndrome last seen by [employer] 05/18/2023 coming in for annual exam.? In review of the notes, patient was seen by Gastroenterology 04/09/2024 for follow up on IBS has been taking Nexium and improving diet with symptom improvement follow up in 6 months. Patient states that for quite some time now he has been feeling nauseous especially after eating and just a general feeling of run down. He complains of dizziness which happens primarily when he goes from sitting to standing or when lying down to standing and may persist for 5-10 minutes and spontaneously resolved. He also mentions that he has feelings of palpitations or heart racing 2 to 3 times a week which lasts for about 5-10 minutes and resolve spontaneously. [facility] Medical History Asthma Family History Mother No problems noted. Father Diabetes Hypertension Social History Household Members: Family Housing: House Alcohol intake: never Patient Tobacco Use Status: Never used Tobacco e-Cigarette/Vaping Use: Never Used service: No Current occupational status: employed Current occupational exposures/hazards: No Cognitive needs: No Hearing needs: No Vision needs: No Questionnaire PHQ-9 Over the last 2 weeks, how often have you been bothered by any of the following problems? 1. Little interest or pleasure in doing things: not at all 2. Feeling down, depressed, or hopeless: not at all 3. Trouble falling or staying asleep, or sleeping too much: not at all 4. Feeling tired or having little energy: not at all 5. Poor appetite or overeating: not at all 6. Feeling bad about yourself - or that you are a failure or have let yourself or your family down: not at all 7. Trouble concentrating on things, such as reading the newspaper or watching television: not at all 8. Moving or speaking so slowly that other people could have noticed. Or the opposite - being so fidgety or restless that you have been moving around a lot more than usual: not at all 9. Thoughts that you would be better off or of hurting yourself in some way: not at all Total score: 0 Depression Screening Interpretation: Negative Depression Screening Done: Yes 67100 - PHQ-9 Billing: Yes Source: Developed by Drs. Hank Fountain, Kimberly Nunez, Alec Braun and colleagues, with an educational marimar from [employer]. Thrive Questionnaire Date Thrive assessed: 05/20/24 I am a: Patient What is your living situation today?: I have a steady place to live Within the past 12 months, did the food you bought not last and you didn't have the money to get more?: Never true Within the past 12 months, did you worry whether your food would run out before you got money to buy more?: Never true Do you have trouble paying for medicines?: No Do you have trouble getting transportation to medical appointments?: No Do you have trouble paying your heating and electricity bill?: No Do you have trouble taking care of your child, family member or friend?: No Do you have trouble with day-to-day activities such as bathing, preparing meals, shopping, managing finances, etc.?: No Are you currently unemployed and looking for a job?: No Are you interested in more education?: No Please select the resources that you would like help with: None THRIVE Score: 0 AUDIT C Alcohol Use Questionnaire (AUDIT-C) 1. How often do you have a drink containing alcohol?: Never 3. How often do you have six or more drinks on one occasion?: Never Total Score: 0 RAY-7 AMB Questionnaire RAY-7 Date RAY - 7 assessed: 05/20/24 Feeling nervous, anxious, or on edge: 0 = Not at all Not being able to stop or control worryin = Not at all Worrying too much about different things: 0 = Not at all Trouble relaxin = Not at all Being so restless that it is hard to sit still: 0 = Not at all Becoming easily annoyed or irritable: 0 = Not at all Feeling afraid as if something awful might happen: 0 = Not at all Total RAY-7 score (0-4 normal; 5-9 mild; 10-14 moderate; 15-21 severe): 0 Source: Developed by Drs. Hank Fountain, Kimberly Nunez, Alec Braun and colleagues, with an educational marimar from [employer]. RAY-7 Assessment Billing RAY-7 Assessment Tool: RAY-7 Assessment 75307 Review of Systems Const Denies body aches, Denies fatigue, Denies fever(s), Denies frequent falls, Reports headache(s) (1-2x per week ) and Denies weakness Eyes Reports no additional complaints and Denies change in vision ENT Denies dysphagia, Denies dizziness, Denies facial pain, Reports headache(s) (1-2x per week ), Denies nasal congestion and Denies odynophagia Card Denies chest pain, Denies syncope, Denies irregular heart rhythm, Denies leg edema, Reports lightheadedness, Reports palpitations and Denies dyspnea Resp Denies cough and Denies dyspnea GI Denies constipation, Denies dysphagia, Denies dyspepsia, Denies diarrhea, Denies nausea, Denies odynophagia and Denies vomiting Denies dysuria, Denies urinary frequency, Denies urinary hesitancy and Denies urinary urgency Musc Denies back pain and Denies myalgias Skin/Breast Reports system reviewed and no additional complaints, except as documented Neuro Denies dizziness, Denies syncope, Denies frequent falls, Reports headache(s) (1-2x per week ) and Denies weakness Psych Reports no additional complaints Endo Denies fatigue and Reports palpitations Physical exam (Primary Care) Vital Signs: Last Vital Signs Pulse 80 05/20/24 13:58 BP 106/78 05/20/24 13:58 Pulse Ox 100 05/20/24 13:58 Oxygen Delivery Method Room Air 05/20/24 13:58 BMI result Body Mass Index 23.5 Tobacco/Smoking Status: Tobacco use Status Tobacco use date assessed 05/20/24 05/20/24 14:04 Patient Tobacco Use Status Never used Tobacco 05/20/24 13:58 e-Cigarette/Vaping Use Never Used 05/20/24 13:58 PHQ-9: PHQ-9 Score PHQ-9: Total score 0 05/20/24 14:05 Depression Screening Interpretation: Negative Thrive Assessment: Date of Thrive Assessment Date Thrive assessed 05/20/24 05/20/24 14:04 Const General: cooperative, healthy appearing, comfortable and no acute distress Orientation/consciousness: patient oriented x3 HENMT Head: Yes normocephalic Ears: hearing grossly normal bilaterally, external ears normal, TM's normal bilaterally and EAC's normal General nose exam: Normal external nose present Face and sinus: Yes normal facial exam and Yes sinuses nontender Mouth: Normal oral and palatal mucosa present and tongue normal Throat: Yes posterior oropharynx normal Eyes General: appearance normal, both eyes and all related structures Conjunctivae: conjunctivae normal Pupils: Equal, round and reactive pupils present EOM: EOMs intact bilaterally and No Nystagmus present Neck Neck: Yes normal visual inspection, Yes full ROM and Yes no lymphadenopathy Chest Chest palpation & inspection: normal inspection of the chest Resp Effort & Inspection: normal respiratory effort Auscultation: clear to auscultation bilaterally, no crackles, no rales, no rhonchi, no wheezes and breath sounds present Cardio Rate: regular rate Rhythm: regular rhythm Peripheral pulses: radial pulses present and dorsalis pedis present GI Inspection: Yes normal to inspection and No Abdominal wall edema Palpation (GI): Soft to palpation, not firm and nontender Auscultation: normal bowel sounds Rectal Exam - Male: Yes deferred General: Yes no CVA tenderness Back/Spine/Pelvis Back: no CVA tenderness Skin General skin exam: no rashes or lesions noted Neuro General: patient oriented x3 Cranial nerves: Yes Equal, round and reactive pupils present, Yes Midline tongue present, Yes Ability to bilaterally elevate shoulders present and No Nystagmus present Gait exam (Neuro): Normal gait present Extrem General: Yes normal to inspection, Yes full ROM, No no pedal edema and No edema Psych Speech and movement: Normal speech and movement present Affect: normal affect Insight: Good insight present (Psych) Judgement: Good judgement present (Psych) Assessment and Plan Assessment & Plan (1) IBS (irritable bowel syndrome): Code(s): K58.9 - Irritable bowel syndrome without diarrhea Qualifiers: Irritable bowel syndrome type: with diarrhea Qualified Code(s): K58.0 - Irritable bowel syndrome with diarrhea Plan: Patient follows with Gastroenterology for IBS with diarrhea being the predominant symptom. Continue on Nexium. (2) Palpitations: Code(s): R00.2 - Palpitations Plan: Patient has been experiencing palpitations 3-4 times per week with episodes lasting 5-10 minutes. The episodes are associated with mild shortness of breath which spontaneously resolve. We will order for 3 day Holter monitor to evaluate episodes of palpitations. (3) Dizziness: Code(s): R42 - Dizziness and giddiness Plan: Patient's dizziness appears to be orthostatic in nature with dizziness occurring with position changes from sitting and lying down to standing and does not occur at rest. Patient to drink plenty of water and do not skip meals. When standing up be sure to wait a few seconds before moving to avoid injury. If there are any episodes of syncope please go to the ER for evaluation. (4) Annual physical exam: Code(s): Z00.00 - Encounter for general adult medical examination without abnormal findings Plan: Patient is up-to-date on all annual screenings and vaccinations for his age. Blood work ordered at this visit. Plan Follow up in 3 months to discuss blood work and follow up on dizziness. This note was constructed using voice recognition software. While every effort has been made to ensure accuracy and marketing development manager, still areas may have been included sometimes these areas may affect the content or meeting of the given symptoms. Total time spent caring for the patient today was 35 minutes. This includes time spent before the visit reviewing the chart, time spent during the visit, and time spent after the visit and documentation. Orders: Orders Complete Blood Count Auto Diff Today Z00.00 - Encounter for general adult medical examination without abnormal findings Comprehensive Met. Panel Today Z00.00 - Encounter for general adult medical examination without abnormal findings Free T4 (Free Thyroxine) Today Z00.00 - Encounter for general adult medical examination without abnormal findings Thyroid Stimulating Hormone Today Z00.00 - Encounter for general adult medical examination without abnormal findings Lipid Panel Today Z00.00 - Encounter for general adult medical examination without abnormal findings ECG 3 day holter monitor Today R00.2 - Palpitations Coding Level of Care Code Est Pt Prev Care 18-39y([id number]) Diagnoses Irritable bowel syndrome with diarrhea K58.0 Irritable bowel syndrome type: with diarrhea Palpitations R00.2 Dizziness R42 Annual physical exam Z00.00 Additional Codes RAY-7 Assessment Billing - RAY-7 Assessment Tool: RAY-7 Assessment 89711 ([id number])
== END 2024-05-20 14:31 | disposition home or self-care (01) ==
PROVIDERS: PCP Nurse Practitioner Family
DX: Z00.00 Encounter for general adult medical examination without abnormal findings (principal); K58.0 Irritable bowel syndrome with diarrhea; R00.2 Palpitations; R42 Dizziness and giddiness
CPT/HCPCS: 99395

== ENCOUNTER 2024-05-29 07:38 | Outpatient (REF) | payer OTHER, SELFPAY ==
[2024-05-29 07:48] LABS: MANUAL DIFF FLAG NO
[2024-05-29 07:54] LABS: Basophils Absolute Auto 0.1 X10*3/uL (0.0-0.2); Basophils Percent Auto 0.9 % (0-2); Eosinophils Absolute Auto 0.1 X10*3/uL (0.0-0.4); Hematocrit 45.9 % (42.0-52.0); Hemoglobin 16.1 g/dl (14.0-18.0); Imm Gran Abs Auto 0.02 X10*3/uL (0.00-0.03); Imm Gran Pct Auto 0.3 % (0.0-0.4); Lymphocytes Absolute Auto 1.9 X10*3/uL (1.2-4.9); Lymphocytes Percent Auto 27.4 % (20-40); Mean Corpuscular HGB Conc 35.1 g/dl (31.0-36.0); Mean Corpuscular Hemoglobin 29.7 pg (27.0-33.0); Mean Corpuscular Volume 84.5 fL (80.0-98.0); Mean Platelet Volume 9.4 fL (9.4-12.4); Monocytes Absolute Auto 0.7 X10*3/uL (0.1-1.2); Neutrophils Absolute Auto 4.1 x10*3/uL (2.0-8.3); Neutrophils Percent Auto 59.4 % (45-73); Platelet Count 261 X10*3/uL (160-400); Red Blood Count 5.43 X10*6/uL (4.60-5.80); Red Cell Distribution Width 11.9 % (11.0-16.0); White Blood Count 6.9 X10*3/uL (4.8-10.8)
[2024-05-29 08:37] LABS: Alanine Aminotransferase 43 U/L (0-40); Albumin Level 4.6 g/dL (3.5-5.0); Alkaline Phosphatase 112 U/L (39-117); Anion Gap 11 (12-20); Aspartate Amino Transferase 28 U/L (5-37); Bilirubin Total 0.4 mg/dL (0.0-1.0); Blood Urea Nitrogen 14 mg/dL (9-16); Calcium 9.4 mg/dL (8.4-10.2); Carbon Dioxide 29 mmol/L (22-29); Chloride 104 mmol/L (96-108); Cholesterol 198 mg/dL (<200); Estimated Glomerular Filt Rate > 60; Glucose Random 108 mg/dL (60-115); HDL Cholesterol 44 mg/dL (>40); LDL Cholesterol Calculated 138 mg/dL (<100); Potassium 3.8 mmol/L (3.3-5.1); Sodium 140 mmol/L (135-145); Total Protein 7.3 g/dL (6.5-8.0); Triglycerides 82 mg/dL (<150)
[2024-05-29 08:53] LABS: Free T4 (Free Thyroxine) 0.95 ng/dL (0.71-1.85); Thyroid Stimulating Hormone 1.98 uIU/mL (0.32-4.0)
== END 2024-05-29 07:39 | disposition home or self-care (01) ==
LOC: HO.LAB 07:38
DX: Z00.00 Encounter for general adult medical examination without abnormal findings (principal); Z13.29 Encounter for screening for other suspected endocrine disorder; Z13.1 Encounter for screening for diabetes mellitus; Z13.0 Encounter for screening for diseases of the blood and blood-forming organs and certain disorders involving the immune mechanism; Z13.220 Encounter for screening for lipoid disorders
CPT/HCPCS: 36415; 80053; 80061; 84439; 84443; 85025

== ENCOUNTER 2024-06-05 07:35 | Outpatient (REF) | payer OTHER, SELFPAY ==
--- NOTE | ~2024-06-05 | US_ITS ---
EXAMINATION: US ABDOMEN COMPLETE CLINICAL INFORMATION: Other specified abnormal findings of blood chemistry. COMPARISON: None available. TECHNIQUE: Real-time imaging of the abdominal viscera. Limited visualization due to bowel gas. FINDINGS: PANCREAS: Limited visualization of pancreatic tail and head. Imaged portion of pancreatic body is unremarkable. ABDOMINAL AORTA: Limited visualization of the abdominal aorta. Imaged portion of the mid to distal abdominal aorta is within normal limits in caliber. INFERIOR VENA CAVA: Visualized portions are normal. LIVER: Increased hepatic parenchymal heterogeneity and echogenicity could be associated with hepatocellular disease/hepatic steatosis and substantially limits visualization. Correlation with liver function tests and clinical exam recommended to determine further management. GALLBLADDER: No gallstones. No gallbladder wall thickening. COMMON BILE DUCT: Normal in caliber measuring 0.28 cm in diameter. RIGHT KIDNEY: No hydronephrosis. No renal calculi. Limited visualization. The kidney measures 9.3 cm in maximum dimension. LEFT KIDNEY: No hydronephrosis. No renal calculi. Limited visualization. The kidney measures 9.9 cm in maximum dimension. SPLEEN: Normal. The spleen measures 11.0 cm in maximum dimension. FREE FLUID: None. US/US abdomen complete IMPRESSION: Increased hepatic parenchymal heterogeneity and echogenicity could be associated with hepatocellular disease/hepatic steatosis and substantially limits visualization. Correlation with liver function tests and clinical exam recommended to determine further management. Electronically signed by: Elizabeth Caballero MD 07/01/2024 05:21 AM EDT
== END 2024-06-05 07:36 | disposition home or self-care (01) ==
LOC: HO.US 07:35
DX: R79.89 Other specified abnormal findings of blood chemistry (principal)
CPT/HCPCS: 76700

== ENCOUNTER 2024-08-19 15:26 | Outpatient (AMB) | payer OTHER, SELFPAY ==
[2024-08-19 15:28] VITALS: BP 116/68; PULSE 80; O2SAT 98; BMI 23.2
--- NOTE | 2024-08-19 15:28 | A.OFFPC_ITS ---
Vital Signs 08/19/24 15:28 Height 5 ft 4 in Weight 135 lb BMI 23.2 BP 116/68 Blood Pressure Location Lt brachial Position Sitting Pulse 80 Pulse Source Pulse Oximeter Pulse Oximetry (%) 98 Oxygen Delivery Method Room Air Intake Visit Reasons: f/u fatigue and labs Distributor Of Directories Required: No Accompanied by: Self / Same As Patient Allergies No Known Allergies [No Known Allergies*] Allergy (Verified 08/19/24 15:28) Medication List - Last Reconciled 08/19/24 by Gena Muller PA-C esomeprazole magnesium (Nexium) 40 mg PO DAILY Tobacco use date assessed: 05/20/24 Dental Screening Dental Screen Date: 05/20/24 HPI f/u fatigue and labs HPI Details 28-year-old male with past medical histo ry of irritable bowel syndrome last seen 04/2024 coming in for follow up on labs. In review of the notes, patient completed abdominal ultrasound 06/2024 which showed hepatic steatosis. Patient states he has been feeling better since his last visit. Still does continue to have fatigue and palpitations. Due to scheduling errors the Holter monitor has not been completed yet. He states the palpitations will happen sporadically every other day and feel like his heart is racing. He will occasionally have shortness of breath with these palpitations but denies any chest pains. He also mentions he feels he has difficulty getting air into his lungs when he takes a deep breath. Denies any coughing fits or nighttime awakenings of shortness of breath and does not identify any triggering or relieving factors. [facility] Medical History Asthma Family History Mother No problems noted. Father Diabetes Hypertension Social History Household Members: Family Housing: House Alcohol intake: never Patient Tobacco Use Status: Never used Tobacco Tobacco use type: Cigarette e-Cigarette/Vaping Use: Never Used service: No Current occupational status: employed Current occupational exposures/hazards: No Cognitive needs: No Hearing needs: No Vision needs: No Questionnaire Thrive Questionnaire Date Thrive assessed: 05/20/24 RAY-7 AMB Questionnaire RAY-7 Date RAY - 7 assessed: 05/20/24 Source: Developed by Drs. Hank Fountain, Kimberly Nunez, Alec Braun and colleagues, with an educational marimar from [employer]. Review of Systems Const Denies body aches, Denies chills, Denies fever(s), Denies headache(s) and Denies poor appetite Eyes Reports no additional complaints ENT Denies dizziness and Denies headache(s) Card Details: Occasional intermittent palpitations Denies chest pain, Denies syncope, Denies edema, Denies irregular heart rhythm, Denies lightheadedness and Reports dyspnea (With palpitation episodes) Resp Denies cough and Reports dyspnea (With palpitation episodes) GI Denies abdominal pain, Denies constipation, Denies diarrhea, Denies nausea and Denies vomiting Reports no additional complaints Musc Reports no additional complaints and Denies abnormal gait Skin/Breast Reports system reviewed and no additional complaints, except as documented Neuro Denies abnormal gait, Denies dizziness, Denies syncope and Denies headache(s) Psych Reports no additional complaints Physical exam (Primary Care) Vital Signs: Last Vital Signs Pulse 80 08/19/24 15:28 BP 116/68 08/19/24 15:28 Pulse Ox 98 08/19/24 15:28 Oxygen Delivery Method Room Air 08/19/24 15:28 BMI result Body Mass Index 23.2 Tobacco/Smoking Status: Tobacco use Status Tobacco use date assessed 05/20/24 08/19/24 15:32 Patient Tobacco Use Status Never used Tobacco 08/19/24 15:32 Tobacco use type Cigarette 08/19/24 15:32 e-Cigarette/Vaping Use Never Used 08/19/24 15:32 Thrive Assessment: Date of Thrive Assessment Date Thrive assessed 05/20/24 08/19/24 15:32 Const General: cooperative, healthy appearing, comfortable and no acute distress Orientation/consciousness: patient oriented x3 HENMT Head: Yes normocephalic Ears: hearing grossly normal bilaterally General nose exam: Normal external nose present Eyes General: appearance normal, both eyes and all related structures Conjunctivae: conjunctivae normal Neck Neck: Yes full ROM and Yes no lymphadenopathy Resp Effort & Inspection: normal respiratory effort Auscultation: clear to auscultation bilaterally, no crackles, no rales, no rhonchi and no wheezes Cardio Rate: regular rate Rhythm: regular rhythm Skin General skin exam: no rashes or lesions noted Neuro General: patient oriented x3 Gait exam (Neuro): Normal gait present Extrem General: Yes normal to inspection, Yes full ROM and No edema Psych Affect: normal affect Attitude: cooperative Insight: Good insight present (Psych) Judgement: Good judgement present (Psych) Office Procedures Flu Questionnaire Does the patient have a severe egg allergy?: No Does the patient have severe life threatening allergies?: No Does the patient have a fever or illness today?: No Has the patient ever had Guillain-Sumrall Syndrome?: No Has the patient ever had any past reaction to a flu shot?: No Immunizations Fluarix Triv [id number] (PF) 45 mcg (15 mcg x 3)/0.5 mL IM syringe Performing Provider: Gena Muller PA-C [facility] [place] [facility] Administered by: Milvia Velarde RN on 08/19/24 15:39 Dose Route Admin Location Dispensed Lot Number Expiration Date [facility] Belt Back Operator 0.5 mL IM Left Deltoid 0.5 mL [id number] 04/21/25 36675-908-18 [employer] VIS Given Date VIS Provided VIS Publication Date 08/19/24 Single Vaccine 21 Eligibility Eligibility Date Funding Source Not [facility] Eligible 08/19/24 Private Coding Level of Care Code Est Pt Level 4 (00064) Diagnoses Elevated LFTs R79.89 Shortness of breath R06.02 Hypercholesterolemia E78.00 Palpitations R00.2 Assessment & Plan Assessment & Plan (1) Elevated LFTs: Code(s): R79.89 - Other specified abnormal findings of blood chemistry Category: Medical Plan: Abdominal ultrasound completed showed hepatic steatosis. Healthy diet and regular exercise is encouraged. (2) Shortness of breath: Code(s): R06.02 - Shortness of breath Category: Medical (3) Hypercholesterolemia: Code(s): E78.00 - Pure hypercholesterolemia, unspecified Category: Medical Plan: Avoid foods that are high in cholesterol such as red meat, fried foods, eggs and baked goods. Triglyceride goal of less than 150 and LDL goal of less than 130. Discussed dietary and lifestyle changes and we will repeat cholesterol at annual visit. (4) Palpitations: Code(s): R00.2 - Palpitations Category: Medical Plan: Patient continues to have intermittent random episodes of palpitations which include bounding and racing heart rate. Reordered for Holter monitor and we will follow up after completion. Plan This note was constructed using voice recognition software. While every effort has been made to ensure accuracy and rehab care assistant, still areas may have been included sometimes these areas may affect the content or meeting of the given symptoms. Total time spent caring for the patient today was 20 minutes. This includes time spent before the visit reviewing the chart, time spent during the visit, and time spent after the visit and documentation. Orders: Orders PFT pulmonary function test Today R06.02 - Shortness of breath Influenza [id number] Immunization Today Z23 - Encounter for immunization
== END 2024-08-19 15:51 | disposition home or self-care (01) ==
LOC: HO.HMCH 15:26
DX: R79.89 Other specified abnormal findings of blood chemistry (principal); R06.02 Shortness of breath; E78.00 Pure hypercholesterolemia, unspecified; R00.2 Palpitations; Z23 Encounter for immunization

== ENCOUNTER → 2024-08-19 15:26 | Outpatient (BNVA) | payer OTHER, SELFPAY | DX: Z23 Encounter for immunization (principal); R79.89 Other specified abnormal findings of blood chemistry; R06.02 Shortness of breath; E78.00 Pure hypercholesterolemia, unspecified; R00.2 Palpitations | CPT/HCPCS: 90471; 90656; 99212 ==

== ENCOUNTER 2024-10-03 10:22 | Outpatient (REF) | payer OTHER, SELFPAY ==
--- NOTE | 2024-10-03 10:39 | PFT_ITS ---
Indication: Dyspnea Spirometry [FEV1 to FVC 88%; FEV1 4.01 L; FVC 4.58 L. No significant response to bronchodilators noted. Maximum voluntary ventilation 72% predicted] Lung Volumes [Total lung capacity 95% predicted; residual volume 86% predicted] Diffusion Capacity [DLCO 95% predicted] Comparisons [none] Interpretation [No obstructive nor restrictive ventilatory defects identified. No significant response to bronchodilators noted. This is a mild decrease in the maximum voluntary ventilation which could be secondary to deconditioning. Although, can not rule out neuromuscular conditions. Total lung capacity is within normal limits. Diffusing capacity also within normal limits. If asthma is new differential methacholine challenge may be helpful to assess hyperreactive airways. Otherwise clinical correlation warranted.] MTDD
[2024-10-03 10:43] VITALS: PULSE 78; O2SAT 96
== END 2024-10-03 10:23 | disposition home or self-care (01) ==
LOC: HO.RESP 10:22
DX: R06.02 Shortness of breath (principal)
CPT/HCPCS: 94010; 94640; 94727; 94729

== ENCOUNTER → 2024-10-03 10:39 | Outpatient (BNV) | payer OTHER, SELFPAY | PROVIDERS: Visit Provider Hospitalist | DX: R06.09 Other forms of dyspnea (principal) | CPT/HCPCS: 94060; 94727; 94729 ==

== ENCOUNTER 2024-10-10 07:49 | Outpatient (AMB) | payer OTHER, SELFPAY ==
[2024-10-10 08:08] VITALS: BP 114/60; PULSE 66; O2SAT 99; BMI 23.7
--- NOTE | 2024-10-10 08:08 | A.OFFVIS_ITS ---
Vital Signs 10/10/24 08:08 Height 5 ft 4 in Weight 138 lb 0.15 oz BMI 23.7 BP 114/60 Blood Pressure Location Rt brachial Position Sitting Pulse 66 Pulse Source Pulse Oximeter Pulse Oximetry (%) 99 Oxygen Delivery Method Room Air Intake Visit Reasons: 6 mos FUV -- R/S from 10/08 Intake Note: ESTABLISHED PATIENT Michele presents in office today for a scheduled 6 mos FUV. Meds and Allergies reviewed? Y No recent or relevant surgeries? N Any significant concerns or new changes? No significant changes or concerns at this time. Pharmacy verified? [facility]. Systems Applications Programming Lead Required: No Allergies No Known Allergies [No Known Allergies*] Allergy (Verified 10/10/24 08:08) HPI HPI 6 mos FUV -- R/S from 10/08: Details: LAST VISIT: IBS (irritable bowel syndrome) Postprandial epigastric pain GERD (gastroesophageal reflux disease) Plan Continue Nexium for another 2 weeks and try to wean off every other day. Continue avoiding dietary triggers and late night snacking. Staying upright for minimum 3 hours after meals discussed with patient. Patient will follow-up in 6 months, sooner on as needed basis. He is agreeable to this plan and verbalizes understanding of instructions. He was given the opportunity to ask questions and all questions answered. ? TODAY'S VISIT: Patient is here today for follow-up. Patient reports that he has been doing well. No longer is taking Nexium at this time and is feeling well. Patient saw his PCP in his summer and was told that his liver enzymes were slightly elevated. Laboratory Tests 09/12/23 05/29/24 20:38 07:46 AST 19 28 ALT 31 43 H ABDOMINAL ULTRASOUND 06/05/2024 IMPRESSION: Increased hepatic parenchymal heterogeneity and echogenicity could be associated with hepatocellular disease/hepatic steatosis and substantially limits visualization. Correlation with liver function tests and clinical exam recommended to determine further management. Patient was told to stop eating food high in fat, fast food, red meat. Patient denies any abdominal pain or discomfort. Reports. Denies melena, hematochezia, unintentional weight loss or like stools. Patient denies dyspepsia, dysphagia or odynophagia. Good appetite. Patient is feeling fairly well. Patient denies any family history of liver disease PFSH Medical History Asthma Family History Mother No problems noted. Father Diabetes Hypertension Social History Household Members: Family Housing: House Alcohol intake: never Patient Tobacco Use Status: Never used Tobacco Tobacco use type: Cigarette e-Cigarette/Vaping Use: Never Used service: No Current occupational status: employed Current occupational exposures/hazards: No Cognitive needs: No Hearing needs: No Vision needs: No Review of Systems Const Denies weight gain and Denies weight loss ENT Reports no additional complaints, Denies dysphagia and Denies odynophagia Card Reports no additional complaints Resp Reports no additional complaints GI Denies abdominal pain, Denies belching, Denies melena, Denies bloating, Denies change in bowel habits, Denies dysphagia, Denies excessive flatus, Denies dyspepsia, Denies heartburn, Denies diarrhea, Denies loose stools, Denies nausea, Denies odynophagia and Denies vomiting Reports no additional complaints Musc Reports no additional complaints Neuro Reports no additional complaints Psych Reports no additional complaints Endo Reports no additional complaints Physical Exam Const General: healthy appearing, no acute distress and well developed Nutritional Appearance: well nourished Orientation/consciousness: patient oriented x3 Resp Effort & Inspection: normal respiratory effort, able to speak in complete sentences, no tracheal deviation and symmetric chest movement Auscultation: clear to auscultation bilaterally Cardio Rate: regular rate GI Inspection: Yes normal to inspection and No distended Palpation (GI): Soft to palpation, not firm, nontender and No hepatosplenomegaly present Auscultation: normal bowel sounds General: Yes no CVA tenderness Back/Spine/Pelvis Back: no CVA tenderness Skin General skin exam: elasticity normal, turgor normal and dry skin Neuro General: patient oriented x3 Psych Appearance: grossly normal Mental Status: mental status grossly normal Assessment & Plan Assessment & Plan (1) Elevated LFTs: Code(s): R79.89 - Other specified abnormal findings of blood chemistry Category: Medical (2) IBS (irritable bowel syndrome): Code(s): K58.9 - Irritable bowel syndrome, unspecified Category: Medical Qualifiers: Irritable bowel syndrome type: with diarrhea Qualified Code(s): K58.0 - Irritable bowel syndrome with diarrhea (3) Postprandial epigastric pain: Code(s): R10.13 - Epigastric pain (4) GERD (gastroesophageal reflux disease): Code(s): K21.9 - Gastro-esophageal reflux disease without esophagitis Qualifiers: Esophagitis presence: esophagitis presence not specified Qualified Code(s): K21.9 - Gastro-esophageal reflux disease without esophagitis Plan Patient will stop taking Nexium 40 mg and will start taking Nexium 20 mg. Patient will call the office if insurance will not cover and he will use good Rx instead. Will check liver enzymes if patient continues to have elevation will send him for more testing. Discussed with patient low-fat, low-salt low carb and high-protein diet. He will be seen in 6 months. Patient will call the office if he will have any GI concerning symptoms. Patient is agreeable to this plan and verbalizes understanding of instructions. He was given the opportunity to ask questions and all questions answered Thank you for allowing me to participate in his care Orders: Orders Liver Panel Today R74.01 - Elevation of levels of liver transaminase levels Medications: New esomeprazole magnesium (Nexium 24HR) 20 mg PO DAILY 30 tabs 2RF Discontinued esomeprazole magnesium (Nexium) Discontinued Reason: Doctor's Order 40 mg PO DAILY 30 caps 5RF K21.9 - Gastro-esophageal reflux disease without esophagitis Coding Level of Care Code Est Pt Level 3 (21383) Diagnoses Elevated LFTs R79.89 Irritable bowel syndrome with diarrhea K58.0 Irritable bowel syndrome type: with diarrhea Postprandial epigastric pain R10.13 Gastroesophageal reflux disease, unspecified whether esophagitis present K21.9 Esophagitis presence: esophagitis presence not specified Time Spent (min) 25 Comment 15 minutes spent with patient and additional 10 minutes spent reviewing his records
== END 2024-10-10 08:27 | disposition home or self-care (01) ==
PROVIDERS: Visit Provider Nurse Practitioner Family
DX: R79.89 Other specified abnormal findings of blood chemistry (principal); K58.0 Irritable bowel syndrome with diarrhea; R10.13 Epigastric pain; K21.9 Gastro-esophageal reflux disease without esophagitis
CPT/HCPCS: 99213

== ENCOUNTER 2024-10-10 07:49 | Outpatient (REF) | payer OTHER, SELFPAY ==
[2024-10-10 10:48] LABS: Alanine Aminotransferase 20 U/L (0-40); Albumin Level 4.5 g/dL (3.5-5.0); Alkaline Phosphatase 100 U/L (39-117); Aspartate Amino Transferase 20 U/L (5-37); Bilirubin Direct 0.2 mg/dL (0.0-0.5); Bilirubin Total 0.4 mg/dL (0.0-1.0); Total Protein 7.3 g/dL (6.5-8.0)
== END 2024-10-10 07:50 | disposition home or self-care (01) ==
LOC: HO.LAB 07:49
PROVIDERS: Visit Provider Nurse Practitioner Family
DX: R74.01 Elevation of levels of liver transaminase levels (principal)
CPT/HCPCS: 36415; 80076

== ENCOUNTER 2025-05-22 08:02 | Outpatient (AMB) | payer OTHER, SELFPAY ==
--- NOTE | 2025-05-22 08:07 | MHC.PC.OV ---
Vital Signs 05/22/25 08:08 Height 5 ft 4 in Weight 128 lb BMI 22.0 BP 130/74 Blood Pressure Location Lt brachial Position Sitting Pulse 73 Pulse Source Pulse Oximeter Temp 97.3 F Temp Source Temporal Artery Scan Pulse Oximetry (%) 98 Oxygen Delivery Method Room Air Intake Visit Reasons: PHYSICAL Intake Note: Patient is here today for a physical. 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 [employer]ak Required: No Commercial Hvac Service Technician: Not Required per policy Accompanied by: Self / Same As Patient Allergies No Known Allergies (No Known Allergies*) Allergy (Verified 05/22/25 08:15) Medication List - Last Reconciled 05/22/25 by Gena Muller PA-C No Known Home Meds Tobacco use date assessed: 05/22/25 Dental Screening Dental Screen Date: 05/22/25 Did you have a dental visit in the last 12 months?: No Did you have a dental problem in the last 6 months where you did not have access to dental care?: No Was dental information given to patient?: Patient has dentist HPI PHYSICAL HPI Details 29-year-old male with past medical history of irritable bowel syndrome last seen 07/2024 coming in for annual exam.? In review of the notes, patient was seen by Gastroenterology 09/2024 reduced Nexium to 20 mg, plan to recheck LFTs advised to follow up in 6 months. Gastroesophageal reflux disease (GERD) Previously managed with Nexium, now discontinued after tapering. No current symptoms of GERD reported. Previously experienced palpitations, now resolved with dietary changes, including reduced dairy intake. No current shortness of breath previously experienced but resolved. Also a 10 lb intentional weight loss since last visit due to increase activity and reduced caloric intake. No acute concerns today vaccines: UTD PFSH Medical History Asthma Surgical History No pertinent past surgical history Family History Mother No problems noted. Father Diabetes Hypertension Social History Household Members: Family Housing: House Alcohol intake: never Patient Tobacco Use Status: Never used Tobacco Tobacco use type: Cigarette e-Cigarette/Vaping Use: Never Used Second Hand Smoke Exposure: No service: No Current occupational status: employed Current occupational exposures/hazards: No Cognitive needs: No Hearing needs: No Vision needs: No Questionnaire PHQ-9 Over the last 2 weeks, how often have you been bothered by any of the following problems? 1. Little interest or pleasure in doing things: not at all 2. Feeling down, depressed, or hopeless: not at all 3. Trouble falling or staying asleep, or sleeping too much: not at all 4. Feeling tired or having little energy: not at all 5. Poor appetite or overeating: not at all 6. Feeling bad about yourself - or that you are a failure or have let yourself or your family down: not at all 7. Trouble concentrating on things, such as reading the newspaper or watching television: not at all 8. Moving or speaking so slowly that other people could have noticed. Or the opposite - being so fidgety or restless that you have been moving around a lot more than usual: not at all 9. Thoughts that you would be better off or of hurting yourself in some way: not at all Total score: 0 Depression Screening Interpretation: Negative Depression Screening Done: Yes 90444 - PHQ-9 Billing: Yes Source: Developed by Drs. Hank Fountain, Kimberly Nunez, Alec Braun and colleagues, with an educational marimar from [employer]. Thrive Questionnaire Date Thrive assessed: 05/22/25 I am a: Patient What is your living situation today?: I have a steady place to live Within the past 12 months, did the food you bought not last and you didn't have the money to get more?: Never true Within the past 12 months, did you worry whether your food would run out before you got money to buy more?: Never true Do you have trouble paying for medicines?: No Do you have trouble getting transportation to medical appointments?: No Do you have trouble paying your heating and electricity bill?: No Do you have trouble taking care of your child, family member or friend?: No Do you have trouble with day-to-day activities such as bathing, preparing meals, shopping, managing finances, etc.?: No Are you currently unemployed and looking for a job?: No Are you interested in more education?: No Please select the resources that you would like help with: None Currently or been in a relationship where the following occur: No concerns reported THRIVE Score: 0 AUDIT C Alcohol Use Questionnaire (AUDIT-C) 1. How often do you have a drink containing alcohol?: Never Total Score: 0 Score Reviewed/Action Taken: Yes RAY-7 AMB Questionnaire RAY-7 Date RAY - 7 assessed: 05/22/25 Feeling nervous, anxious, or on edge: 0 = Not at all Not being able to stop or control worryin = Not at all Worrying too much about different things: 0 = Not at all Trouble relaxin = Not at all Being so restless that it is hard to sit still: 0 = Not at all Becoming easily annoyed or irritable: 0 = Not at all Feeling afraid as if something awful might happen: 0 = Not at all Total RAY-7 score (0-4 normal; 5-9 mild; 10-14 moderate; 15-21 severe): 0 Source: Developed by Drs. Hank Fountain, Kimberly Nunez, Alec Braun and colleagues, with an educational marimar from [employer]. RAY-7 Assessment Billing RAY-7 Assessment Tool: RAY-7 Assessment 63622 Review of Systems Const Denies body aches, Denies fatigue, Denies fever(s), Denies frequent falls, Denies headache(s) and Denies weakness Eyes Reports no additional complaints and Denies change in vision ENT Denies dysphagia, Denies dizziness, Denies facial pain, Denies headache(s), Denies nasal congestion and Denies odynophagia Card Denies chest pain, Denies syncope, Denies irregular heart rhythm, Denies leg edema, Denies lightheadedness and Denies dyspnea Resp Denies cough and Denies dyspnea GI Denies abdominal pain, Denies constipation, Denies dysphagia, Denies dyspepsia, Denies diarrhea, Denies nausea, Denies odynophagia and Denies vomiting Denies dysuria, Denies urinary frequency, Denies urinary hesitancy and Denies urinary urgency Musc Denies back pain and Denies myalgias Skin/Breast Reports system reviewed and no additional complaints, except as documented Neuro Denies dizziness, Denies syncope, Denies frequent falls, Denies headache(s) and Denies weakness Psych Reports no additional complaints Endo Denies fatigue Physical exam (Primary Care) Vital Signs: Last Vital Signs Temp 97.3 F 05/22/25 08:08 Pulse 73 05/22/25 08:08 BP 130/74 05/22/25 08:08 Pulse Ox 98 05/22/25 08:08 Oxygen Delivery Method Room Air 05/22/25 08:08 BMI result Body Mass Index 22.0 Tobacco/Smoking Status: Tobacco use Status Tobacco use date assessed 05/22/25 05/22/25 08:13 Patient Tobacco Use Status Never used Tobacco 05/22/25 08:13 Tobacco use type Cigarette 05/22/25 08:13 e-Cigarette/Vaping Use Never Used 05/22/25 08:13 PHQ-9: PHQ-9 Score PHQ-9: Total score 0 05/22/25 08:13 Depression Screening Interpretation: Negative Thrive Assessment: Date of Thrive Assessment Date Thrive assessed 05/22/25 05/22/25 08:13 Currently or been in a relationship where the following occur: No concerns reported Const General: cooperative, healthy appearing, comfortable and no acute distress Orientation/consciousness: patient oriented x3 HENMT Head: Yes normocephalic Ears: hearing grossly normal bilaterally, external ears normal, TM's normal bilaterally and EAC's normal General nose exam: Normal external nose present Face and sinus: Yes normal facial exam and Yes sinuses nontender Mouth: Normal oral and palatal mucosa present and tongue normal Throat: Yes posterior oropharynx normal Eyes General: appearance normal, both eyes and all related structures Conjunctivae: conjunctivae normal Pupils: Equal, round and reactive pupils present EOM: EOMs intact bilaterally and No Nystagmus present Neck Neck: Yes normal visual inspection, Yes full ROM and Yes no lymphadenopathy Chest Chest palpation & inspection: normal inspection of the chest Resp Effort & Inspection: normal respiratory effort Auscultation: clear to auscultation bilaterally, no crackles, no rales, no rhonchi, no wheezes and breath sounds present Cardio Rate: regular rate Rhythm: regular rhythm Peripheral pulses: radial pulses present and dorsalis pedis present GI Inspection: Yes normal to inspection and No Abdominal wall edema Palpation (GI): Soft to palpation, not firm and nontender Auscultation: normal bowel sounds Rectal Exam - Male: Yes deferred General: Yes no CVA tenderness Back/Spine/Pelvis Back: no CVA tenderness Skin General skin exam: no rashes or lesions noted Neuro General: patient oriented x3 Cranial nerves: Yes Equal, round and reactive pupils present, Yes Midline tongue present, Yes Ability to bilaterally elevate shoulders present and No Nystagmus present Gait exam (Neuro): Normal gait present Extrem General: Yes normal to inspection, Yes full ROM, No no pedal edema and No edema Psych Speech and movement: Normal speech and movement present Affect: normal affect Insight: Good insight present (Psych) Judgement: Good judgement present (Psych) Coding Level of Care Code Est Pt Prev Care 18-39y(14099) Diagnoses Annual physical exam Z00.00 Hypercholesterolemia E78.00 Elevated LFTs R79.89 Irritable bowel syndrome with diarrhea K58.0 Irritable bowel syndrome type: with diarrhea Palpitations R00.2 Additional Codes PHQ-9 - 64397 - PHQ-9 Billing: Yes ([id number]) RAY-7 Assessment Billing - RAY-7 Assessment Tool: RAY-7 Assessment 42343 ([id number]) Assessment & Plan Assessment & Plan (1) Annual physical exam: Code(s): Z00.00 - Encounter for general adult medical examination without abnormal findings Category: Medical Plan: Patient is up-to-date on all recommended routine screenings and vaccinations for his age. He is due for blood work which has been ordered today. Healthy diet and regular exercise is encouraged. Plan to follow up yearly or sooner as needed (2) Hypercholesterolemia: Code(s): E78.00 - Pure hypercholesterolemia, unspecified Category: Medical Plan: Avoid foods that are high in cholesterol such as red meat, fried foods, eggs and baked goods. Triglyceride goal of less than 150 and LDL goal of less than 130. Ordered for updated blood work (3) Elevated LFTs: Code(s): R79.89 - Other specified abnormal findings of blood chemistry Category: Medical Plan: Patient was previously undergoing a workup with GI for elevated LFTs. His most recent appointment had to be rescheduled and advised patient to reach out to GI to reschedule this visit. Ordered for updated blood work (4) IBS (irritable bowel syndrome): Code(s): K58.9 - Irritable bowel syndrome, unspecified Category: Medical Qualifiers: Irritable bowel syndrome type: with diarrhea Qualified Code(s): K58.0 - Irritable bowel syndrome with diarrhea Plan: No longer having symptoms of IBS since reducing dairy intake. (5) Palpitations: Code(s): R00.2 - Palpitations Category: Medical Plan: No longer experiencing palpitations. Advised patient to continue to monitor symptoms and if they develop plan for Holter monitor. Plan The patient is encouraged to maintain current lifestyle changes, including regular physical activity and dietary modifications, to support ongoing weight management and health improvement. Routine blood work has been scheduled to ensure comprehensive health monitoring, given the lapse since the last evaluation. Increased hydration is emphasized to prevent dehydration, particularly with the patient's active lifestyle. A follow-up with the director of agriculture is advised to address any outstanding gastrointestinal concerns and ensure continuity of care. This note was constructed using voice recognition software. While every effort has been made to ensure accuracy and material man, still areas may have been included sometimes these areas may affect the content or meeting of the given symptoms. Total time spent caring for the patient today was 30 minutes. This includes time spent before the visit reviewing the chart, time spent during the visit, and time spent after the visit and documentation. Patient was informed and verbally consented to the use of an ambient scribe for clinic note documentation during this visit. Orders: Orders Lipid Panel Today E78.00 - Pure hypercholesterolemia, unspecified TSH reflex Free T4 Today Z13.29 - Encounter for screening for other suspected endocrine disorder Complete Blood Count Auto Diff Today R79.89 - Other specified abnormal findings of blood chemistry Comprehensive Met. Panel Today R79.89 - Other specified abnormal findings of blood chemistry, Z00.00 - Encounter for general adult medical examination without abnormal findings Free T4 (Free Thyroxine) Today Z13.29 - Encounter for screening for other suspected endocrine disorder Vitamin B12 and Folate Today Z13.21 - Encounter for screening for nutritional disorder Vitamin D 25-OH Total Today Z00.00 - Encounter for general adult medical examination without abnormal findings
[2025-05-22 08:08] VITALS: BP 130/74; PULSE 73; TEMP 36.3; O2SAT 98; BMI 22.0
== END 2025-05-22 08:35 | disposition home or self-care (01) ==
LOC: HO.HMCH 08:02
DX: Z00.00 Encounter for general adult medical examination without abnormal findings (principal); E78.00 Pure hypercholesterolemia, unspecified; R79.89 Other specified abnormal findings of blood chemistry; K58.0 Irritable bowel syndrome with diarrhea; R00.2 Palpitations

== ENCOUNTER 2025-05-22 08:02 | Outpatient (REF) | payer OTHER, SELFPAY ==
[2025-05-22 08:50] LABS: MANUAL DIFF FLAG NO
[2025-05-22 09:02] LABS: Hematocrit 46.0 % (42.0-52.0); Hemoglobin 15.8 g/dl (14.0-18.0); Imm Gran Abs Auto 0.02 X10*3/uL (0.00-0.03); Imm Gran Pct Auto 0.3 % (0.0-0.4); Lymphocytes Absolute Auto 1.9 X10*3/uL (1.2-4.9); Mean Corpuscular HGB Conc 34.3 g/dl (31.0-36.0); Mean Corpuscular Hemoglobin 29.3 pg (27.0-33.0); Mean Corpuscular Volume 85.2 fL (80.0-98.0); NRBC Abs Auto 0.000 X10*3/uL (0.0-0.012); NRBC Pct Auto 0.0 /100WBC (0.0-0.2); Platelet Count 245 X10*3/uL (160-400); Red Blood Count 5.40 X10*6/uL (4.60-5.80); White Blood Count 5.8 X10*3/uL (4.8-10.8)
[2025-05-22 09:36] LABS: Alanine Aminotransferase 18 U/L (0-40); Albumin Level 4.7 g/dL (3.5-5.0); Alkaline Phosphatase 114 U/L (39-117); Anion Gap 10 (12-20); Aspartate Amino Transferase 30 U/L (5-37); Blood Urea Nitrogen 11 mg/dL (9-16); Calcium 9.0 mg/dL (8.4-10.2); Carbon Dioxide 30 mmol/L (22-29); Chloride 105 mmol/L (96-108); Cholesterol 175 mg/dL (<200); Estimated Glomerular Filt Rate > 60; HDL Cholesterol 36 mg/dL (>40); Potassium 3.9 mmol/L (3.3-5.1); Sodium 141 mmol/L (135-145); Total Protein 7.3 g/dL (6.5-8.0); Triglycerides 81 mg/dL (<150)
[2025-05-22 09:53] LABS: Free T4 (Free Thyroxine) 0.97 ng/dL (0.71-1.85)
[2025-05-22 10:01] LABS: Folate 9.9 ng/mL (> or = 4.0); Vitamin B12 588 pg/mL (200-900)
== END 2025-05-22 08:03 | disposition home or self-care (01) ==
LOC: HO.LAB 08:02
DX: Z00.00 Encounter for general adult medical examination without abnormal findings (principal); E78.00 Pure hypercholesterolemia, unspecified; R79.89 Other specified abnormal findings of blood chemistry; K58.0 Irritable bowel syndrome with diarrhea; R00.2 Palpitations; Z13.31 Encounter for screening for depression; Z13.39 Encounter for screening examination for other mental health and behavioral disorders; Z13.21 Encounter for screening for nutritional disorder; Z13.29 Encounter for screening for other suspected endocrine disorder
CPT/HCPCS: 36415; 80053; 80061; 82306; 82607; 82746; 84439; 84443; 85025; 96127

== ENCOUNTER 2025-10-20 09:26 | Outpatient (AMB) | payer OTHER, SELFPAY ==
--- NOTE | 2025-10-20 09:34 | A.OFFPC_ITS ---
Vital Signs 10/20/25 09:35 Height 5 ft 4 in Weight 128 lb 2 oz BMI 22.0 BP 120/66 Blood Pressure Location Lt brachial Position Sitting Pulse 71 Pulse Source Pulse Oximeter Temp 98.9 F Temp Source Oral Pulse Oximetry (%) 98 Oxygen Delivery Method Room Air Intake Visit Reasons: testicular pain Intake Note: Patient is here to follow up on Testicular pain. 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 Reports that the pain is dull in nature and and he feels like sometimes the pain radiates down into his right groin area. Patient also reports lower back pain, but denies flank pain. Denies blood in the urine, denies any trauma to the area, denies any swelling or discoloration, denies penile drainage. Denies nausea or vomiting. Denies increased pain with standing. [facility] Medical History Asthma Surgical History No pertinent past surgical history Family History Mother No problems noted. Father Diabetes Hypertension Social History Household Members: Family Housing: House Alcohol intake: never Patient Tobacco Use Status: Never used Tobacco Tobacco use type: Cigarette e-Cigarette/Vaping Use: Never Used Second Hand Smoke Exposure: No service: No Current occupational status: employed Current occupational exposures/hazards: No Cognitive needs: No Hearing needs: No Vision needs: No Questionnaire PHQ-9 Over the last 2 weeks, how often have you been bothered by any of the following problems? 1. Little interest or pleasure in doing things: not at all 2. Feeling down, depressed, or hopeless: not at all 3. Trouble falling or staying asleep, or sleeping too much: not at all 4. Feeling tired or having little energy: not at all 5. Poor appetite or overeating: not at all 6. Feeling bad about yourself - or that you are a failure or have let yourself or your family down: not at all 7. Trouble concentrating on things, such as reading the newspaper or watching television: not at all 8. Moving or speaking so slowly that other people could have noticed. Or the opposite - being so fidgety or restless that you have been moving around a lot more than usual: not at all 9. Thoughts that you would be better off or of hurting yourself in some way: not at all Total score: 0 Depression Screening Interpretation: Negative Depression Screening Done: Yes Source: Developed by Drs. Hank Fountain, Kimberly Nunez, Alec Braun and colleagues, with an educational marimar from [employer]. Thrive Questionnaire Date Thrive assessed: 05/22/25 I am a: Patient What is your living situation today?: I have a steady place to live Within the past 12 months, did the food you bought not last and you didn't have the money to get more?: Never true Within the past 12 months, did you worry whether your food would run out before you got money to buy more?: Never true Do you have trouble paying for medicines?: No Do you have trouble getting transportation to medical appointments?: No Do you have trouble paying your heating and electricity bill?: No Do you have trouble taking care of your child, family member or friend?: No Do you have trouble with day-to-day activities such as bathing, preparing meals, shopping, managing finances, etc.?: No Are you currently unemployed and looking for a job?: No Are you interested in more education?: No Please select the resources that you would like help with: None Currently or been in a relationship where the following occur: No concerns reported THRIVE Score: 0 AUDIT C Alcohol Use Questionnaire (AUDIT-C) 1. How often do you have a drink containing alcohol?: Never Total Score: 0 RAY-7 AMB Questionnaire RAY-7 Date RAY - 7 assessed: 05/22/25 Feeling nervous, anxious, or on edge: 0 = Not at all Not being able to stop or control worryin = Not at all Worrying too much about different things: 0 = Not at all Trouble relaxin = Not at all Being so restless that it is hard to sit still: 0 = Not at all Becoming easily annoyed or irritable: 0 = Not at all Feeling afraid as if something awful might happen: 0 = Not at all Total RAY-7 score (0-4 normal; 5-9 mild; 10-14 moderate; 15-21 severe): 0 Source: Developed by Drs. Hank Fountain, Kimberly Nunez, Alec Braun and colleagues, with an educational marimar from [employer]. Review of Systems Narrative Review of Systems - Genitourinary: Reports constant, dull right-sided testicular pain for over a month, with some left-sided pain, and radiation to the groin. Denies swelling, discoloration, or hematuria. - Musculoskeletal: Reports lower back pain. - Gastrointestinal: Reports an empty feeling in his stomach associated with the pain. Denies nausea or vomiting. - Constitutional: Denies trauma. Const Denies body aches, Denies chills, Denies fever(s), Denies headache(s) and Denies poor appetite Eyes Reports no additional complaints ENT Denies dysphagia, Denies dizziness, Denies headache(s) and Denies odynophagia Card Denies chest pain, Denies syncope, Denies edema, Denies irregular heart rhythm, Denies lightheadedness and Denies dyspnea Resp Denies cough and Denies dyspnea GI Denies abdominal pain, Denies constipation, Denies dysphagia, Denies diarrhea, Denies nausea, Denies odynophagia and Denies vomiting Denies hematuria, Denies penile discharge, Denies scrotal swelling, Denies testicular mass, Reports testicular pain (Mostly on the right side), Denies urinary frequency, Denies urinary hesitancy and Denies urinary incontinence Musc Reports no additional complaints and Denies abnormal gait Skin/Breast Reports system reviewed and no additional complaints, except as documented Neuro Denies abnormal gait, Denies dizziness, Denies syncope and Denies headache(s) Psych Reports no additional complaints Physical exam (Primary Care) Vital Signs: Last Vital Signs Temp 96.9 F 10/20/25 09:35 Pulse 71 10/20/25 09:35 BP 120/66 10/20/25 09:35 Pulse Ox 98 10/20/25 09:35 Oxygen Delivery Method Room Air 10/20/25 09:35 BMI result Body Mass Index 22.0 Tobacco/Smoking Status: Tobacco use Status Tobacco use date assessed 10/20/25 10/20/25 09:38 Patient Tobacco Use Status Never used Tobacco 10/20/25 09:38 Tobacco use type Cigarette 10/20/25 09:38 e-Cigarette/Vaping Use Never Used 10/20/25 09:38 PHQ-9: PHQ-9 Score PHQ-9: Total score 0 10/20/25 09:38 Depression Screening Interpretation: Negative Thrive Assessment: Date of Thrive Assessment Date Thrive assessed 05/22/25 10/20/25 09:38 Currently or been in a relationship where the following occur: No concerns reported Narrative Physical Exam - Genitourinary: External inspection reveals no swelling, discoloration, or lumps. On palpation, no tenderness is elicited. Cremasteric reflex is intact. Const General: cooperative, healthy appearing, comfortable and no acute distress Orientation/consciousness: patient oriented x3 HENMT Head: Yes normocephalic Ears: hearing grossly normal bilaterally General nose exam: Normal external nose present Eyes General: appearance normal, both eyes and all related structures Conjunctivae: conjunctivae normal Neck Neck: Yes full ROM and Yes no lymphadenopathy Resp Effort & Inspection: normal respiratory effort Auscultation: clear to auscultation bilaterally, no crackles, no rales, no rhonchi and no wheezes Cardio Rate: regular rate Rhythm: regular rhythm General: Yes no CVA tenderness Male General Exam: Yes normal external exam Scrotum: not erythematous, no scrotal swelling and other (Positive cremasteric reflex bilaterally) Testes: no epidiymal tenderness, no testicular swelling and no testicular tenderness Back/Spine/Pelvis Back: no CVA tenderness Skin General skin exam: no rashes or lesions noted Neuro General: patient oriented x3 Gait exam (Neuro): Normal gait present Extrem General: Yes normal to inspection, Yes full ROM and No edema Psych Affect: normal affect Attitude: cooperative Insight: Good insight present (Psych) Judgement: Good judgement present (Psych) Coding Level of Care Code Est Pt Level 4 (81358) Diagnoses Testicular pain, right N50.811 Time Spent (min) 29 Assessment & Plan Assessment & Plan (1) Testicular pain, right: Code(s): N50.811 - Right testicular pain Category: Medical Plan Plan Patient was informed and verbally consented to the use of an ambient scribe for clinic note documentation during this visit. 1. Testicular Pain The patient presents with a month-long history of constant, dull, right-sided testicular pain with associated lower back pain. Physical examination was reassuring, with an intact cremasteric reflex ruling out acute testicular torsion. An urgent scrotal ultrasound will be ordered to further evaluate the testicular structure. Additionally, urinalysis and blood work will be performed to assess for infection, including STIs such as gonorrhea and chlamydia, and to check for inflammatory markers. Follow-up will be scheduled upon receipt of diagnostic results to guide further management. Discussion Notes I informed the patient that the physical examination helped to rule out an immediate emergency such as testicular torsion, as his cremasteric reflex was intact. I explained the plan to proceed with an urgent scrotal ultrasound, urinalysis, and blood work to investigate the cause of his pain. I advised him that these tests would check for structural problems, infections like a UTI or STIs, and signs of inflammation. The patient was informed that he would be contacted to schedule the ultrasound, which should occur within a week, and he was instructed to proceed with the lab work today. We discussed that once the results are available, we will contact him to determine the next steps, which may include treatment or further testing. Patient Instructions - Please go to the laboratory as soon as possible to give a blood and urine sample. - You do not need to fast (avoid eating) before your blood test. - You will receive a call to schedule an ultrasound of your testicles. This should be scheduled within a week. - If you do not receive a call to schedule your ultrasound, please contact our office. - We will call you with your test results to discuss the next steps. Orders: Orders Complete Blood Count Auto Diff Today N50.811 - Right testicular pain UA CC w/rflx Micro + Cult Today N50.811 - Right testicular pain CT NG by PCR Urine Today N50.811 - Right testicular pain Syphilis Screen Today N50.811 - Right testicular pain US scrotum Today N50.811 - Right testicular pain Basic Metabolic Panel Today N50.811 - Right testicular pain HIV Ab/Ag Today N50.811 - Right testicular pain Erythrocyte Sedimentation Rate Today N50.811 - Right testicular pain CRP High Sensitivity Today N50.811 - Right testicular pain
[2025-10-20 09:35] VITALS: BP 120/66; PULSE 71; TEMP 37.2; O2SAT 98; BMI 22.0
== END 2025-10-20 11:20 | disposition home or self-care (01) ==
LOC: HO.HMCH 09:27
DX: N50.811 Right testicular pain (principal)

== ENCOUNTER 2025-10-20 09:26 | Outpatient (REF) | payer OTHER, SELFPAY ==
[2025-10-20 10:22] LABS: MANUAL DIFF FLAG NO
[2025-10-20 10:41] LABS: Hematocrit 41.3 % (42.0-52.0); Hemoglobin 14.0 g/dl (14.0-18.0); Imm Gran Abs Auto 0.32 X10*3/uL (0.00-0.03); Imm Gran Pct Auto 3.6 % (0.0-0.4); Lymphocytes Absolute Auto 2.3 X10*3/uL (1.2-4.9); Mean Corpuscular HGB Conc 33.9 g/dl (31.0-36.0); Mean Corpuscular Hemoglobin 28.5 pg (27.0-33.0); Mean Corpuscular Volume 83.9 fL (80.0-98.0); NRBC Abs Auto 0.000 X10*3/uL (0.0-0.012); NRBC Pct Auto 0.0 /100WBC (0.0-0.2); Platelet Count 339 X10*3/uL (160-400); Red Blood Count 4.92 X10*6/uL (4.60-5.80); White Blood Count 8.9 X10*3/uL (4.8-10.8)
[2025-10-20 11:02] LABS: Anion Gap 9 (12-20); Blood Urea Nitrogen 10 mg/dL (9-16); Calcium 9.2 mg/dL (8.4-10.2); Carbon Dioxide 29 mmol/L (22-29); Chloride 108 mmol/L (96-108); Estimated Glomerular Filt Rate > 60; Potassium 3.8 mmol/L (3.3-5.1); Sodium 142 mmol/L (135-145)
[2025-10-20 11:21] LABS: HIV Num 1 0.28 S/CO (0.00-0.99)
[2025-10-20 11:22] LABS: Syphilis Screen Nonreactive (Nonreactive)
[2025-10-20 12:31] LABS: CT PCR Urine NOT DETECTED (Not Detect.); NG PCR Urine NOT DETECTED (Not Detect.)
[2025-10-20 14:45] LABS: Appearance Urine Cloudy; Glucose Urine UA Negative (Negative); PH 8.5 (5.0-9.0); Specific Gravity - Urine <= 1.005 (1.005-1.025)
== END 2025-10-20 09:27 | disposition home or self-care (01) ==
LOC: HO.LAB 09:26
DX: N50.811 Right testicular pain (principal); Z13.31 Encounter for screening for depression
CPT/HCPCS: 80048; 81003; 85025; 85652; 86141; 86780; 87389; 87491; 87591; 96127

== ENCOUNTER 2025-10-22 14:05 | Outpatient (REF) | payer OTHER, SELFPAY ==
--- NOTE | ~2025-10-22 | US_ITS ---
CLINICAL HISTORY: N50.811 - Right testicular pain US Scrotum with Doppler Comparison: None provided Findings: Right testicle 4.5 x 2.4 x 2.9 cm. Normal echotexture. Left testicle 4.4 x 2.5 x 2.9 cm. Echotexture mildly heterogeneous. No lesions. The left testicle is hyperemic. The color Doppler and arterial/venous spectral tracings are both testicles are otherwise within normal limits. The epididymides are hyperemic, right slightly more so than the left. 4 mm right epididymal head cyst. Small right hydrocele. No varicocele or hernia. IMPRESSION: 1. Findings suggesting bilateral epididymitis and left orchitis. 2. Small simple right hydrocele. This document has been electronically signed by: Sumeet Bass MD on 10/23/2025 21:36:21
== END 2025-10-22 14:06 | disposition home or self-care (01) ==
LOC: HO.US 14:05
DX: N50.811 Right testicular pain (principal)
CPT/HCPCS: 76870

== ENCOUNTER → 2025-10-22 14:06 | Outpatient (BNV) | payer OTHER, SELFPAY | PROVIDERS: Visit Provider Radiology Diagnostic Radiology | DX: N43.3 Hydrocele, unspecified (principal) | CPT/HCPCS: 76870 ==